=== PATIENT | female | born 1945 | race Caucasian/White ===

== ENCOUNTER 2020-02-08 08:39 | Outpatient (REF) | payer MEDICAID, SELFPAY ==
--- NOTE | 2020-02-08 13:58 | MHC.AU.P13 ---
Adult Audiological Evaluation Date of Visit: 02/08/20 Adult Care Provider Used: Declined by Patient Reason for Appointment: Audiologic re-evaluation due to question of change in hearing ability. Patient lost both [place] RITE aids received from this office in 2017 while in the [place] and was unable to find them. Need to obtain new in-the-ear hearing aids as patient had significant difficulty manipulating the RITE style. Does patient feel they have a hearing loss?: Yes If Yes, Which Ear?: Both Ears When Was Hearing Difficulty First Noticed?: At least 13 years ago. Assessed by Engineer Sergeant Dr. Derek Jensen in 2017 and medically cleared for binaural hearing aids. Has hearing been tested previously?: Yes Previous Hearing Test Results: [facility] 08/02/2016 Right ear: Borderline normal hearing at 250-1000 Hz, dropping to a moderate sensorineural hearing loss with 92% speech understanding at 65 dB HL Left ear: Moderate to profound sensorineural hearing loss with 72% speech understanding at 90 dB HL Ear History: Bothersome Tinnitus/Ringing/Noises in Ears: Both Ears Medical History: Medical History: Diabetes Stroke Medication List: Loratadine (as needed), Amitriptyline HCI, Atenolol, Allopurinol, Calcium, Albuterol (as needed), Atorvastatin, Ketotifen eye drops (as needed) Otoscopy: Right Ear: Unremarkable Left Ear: Unremarkable Tympanometry: Right Ear: Normal Middle Ear System (Type A) Left Ear: Normal Middle Ear System (Type A) Otoacoustic Emissions Right Ear Results: Not performed at today's visit. Left Ear Results: Not performed at today's visit. Hearing Evaluation: Transducer(s) Used: Insert Earphones Bone Conduction Method: Conventional Audiometry Stimuli Used: Pure Tones Right Ear: Description of Hearing: Borderline normal at 250-500 Hz, dropping to a severe sensorineural high frequency hearing loss Left Ear: Description of Hearing: Moderately-severe to profound mixed hearing loss. Speech Recognition Threshold (SRT): Method Used: Monitored Live Voice Stimuli Used: Spondee Words Right Ear: 20 dB HL Left Ear: 60 dB HL Word Discrimination: Method: Monitored Live Voice Word Lists Used: Lista Bisil?bica (Northern Irish) Right Ear: 88% at 60 dB HL Left Ear: 60% at 90 dB HL Most Comfortable Level (MCL): Right Ear: Left Ear: Comparison: Compared to most recent evaluation: There is no significant decrease in hearing levels compared to 2017 results; however, the left ear speech discrimination has decreased from 72% to 60% today. Recommendations: Recommendations: Audiological re-evaluation in one year. Medical clearance from a physician is required before fitting. Recommendations (Other): Obtaining prior authorization from insurance as the hearing aids need to be replaced prior to the 5 year limit. Patient is leaving for the [place] [facility] February to May 2020. Took impressions of both ears without complication and will order aids in Early May 2020. Patient's daughter will call to schedule a Hearing Aid Fitting appointment in late May 2020. Diagnosis: Primary Diagnosis: H90.3 Bilateral Sensorineural Hearing Loss Services Performed: Services Performed: Comprehensive Audiological Evaluation (CPT 18533) Tympanometry (CPT 70241) Signature: Provider: Brigid Alonzo, MASON-A
--- NOTE | 2020-02-09 11:26 | MHC.AU.P13 ---
Hearing Aid Evaluation- Binaural Date of Visit: 02/08/20 Roll Wrapper Used: Declined by Patient Description of Hearing: Right Ear: Borderline normal low frequency dropping to moderately-severe sensorineural hearing loss Left Ear: Moderately-severe to profound mixed hearing loss Hearing Instrument Selection: Right Ear: Staff Services Manager:Phonak Model: Virto M 50-312 Battery Size: 312 Color: Dockery Left Ear: Staff Services Manager:Phonak Model: [employer] M 50-312 Battery Size: 312 Color: Dockery Recommendations: Recommendations: Due to patient's significant hearing loss and difficulty manipulating the two pieces required to use [id number] hearing aids , advise binaural in-the-ear custom hearing aids as part of the remediation process for the hearing loss. Recommendations: Aids will be ordered in Early May 2020 and Hearing Aid Fitting will be scheduled by family [place] [facility] [place] Code(s): Primary Diagnosis: H90.3 Bilateral Sensorineural Hearing Loss Secondary Diagnosis: N/A Services Performed: Hearing Aid Evaluation and [place]: Signature: Provider: Brigid Alonzo, CCC-A
== END 2020-02-08 08:40 | disposition home or self-care (01) ==
LOC: HO.SH 08:39
PROVIDERS: Visit Provider Internal Medicine
DX: H90.3 Sensorineural hearing loss, bilateral (principal)
CPT/HCPCS: 92557; 92567

== ENCOUNTER 2020-09-13 14:24 | Outpatient (REF) | payer MEDICAID, SELFPAY ==
--- NOTE | ~2020-09-13 | MM_ITS ---
EXAMINATION: BONE DENSITOMETRY CLINICAL INDICATION: Screening for osteoporosis. COMPARISON: Previous BD dated 09/11/2018 and baseline BD dated 11/24/2015. TECHNIQUE: Using a Tasspass DXA System (software version: 13.1) manufactured by [employer], dual-energy x-ray absorptiometry was performed of the lumbar spine and left hip. The images are of good technical quality. Summary results are attached. FINDINGS: AP SPINE L1-L4: Current: BMD 0.949 g/cm2, Z-score -0.6, T-score -1.9, osteopenia, 9.5% increase from previous, 16.6% increase from baseline (<5% change is not significant). Prior: BMD 0.867 g/cm2. Baseline: BMD 0.814 g/cm2. LEFT FEMUR, NECK: Current: BMD 0.620 g/cm2, Z-score -1.3, T-score -3.0, osteoporosis. Prior: BMD 0.669 g/cm2. Baseline: BMD 0.642 g/cm2. LEFT FEMUR, TOTAL: Current: BMD 0.837 g/cm2, Z-score 0.1, T-score -1.4, osteopenia, 5.7% decrease from previous, 0.7% decrease from baseline (<5% change is not significant). Prior: BMD 0.888 g/cm2. Baseline: BMD 0.843 g/cm2. IDENTIFIED RISK FACTORS: Osteoporosis, history of fracture (adult). Early menopause, secondary osteoporosis, hysterectomy, bilateral oophorectomy. HISTORY OF FRACTURE: Ankle. MEDICATIONS: Calcium supplements or multivitamin, vitamin D. MM/XR DEXA axial skeleton IMPRESSION: 1. DIAGNOSIS: Osteoporosis based on the lowest T-score value of -3.0 in the femoral neck applying World Health Organization criteria. 2. 10-YEAR FRACTURE RISK PREDICTION, FRAX: Major osteoporotic fracture (clinical spine, forearm, hip or shoulder) 17.2%. Hip fracture 5.9%. 3. Treatment Recommendations: NOF guidelines recommend consideration for treatment in postmenopausal women and men age 50 and older presenting with the following: -A hip or vertebral (clinical or morphometric) fracture. -T-score less than or equal to -2.5 at the femoral neck or spine after appropriate evaluation to exclude secondary causes. -Low bone mass at the hip or spine and a 10-year fracture probability by FRAX of greater than or equal to 3% for hip fracture or greater than or equal to 20% for major osteoporotic fracture based on the [place] adapted WHO algorithm. 4. Other Recommendations: All treatment decisions require clinical judgment and consideration of individual patient factors, including patient preferences, comorbidities, previous drug use, risk factors not captured in the FRAX model (e.g. frailty, falls, vitamin D deficiency, increased bone turnover, interval significant decline in bone density) and possible under or overestimation of fracture risk by FRAX. Additional medical evaluation for secondary cause of low bone mineral density may be appropriate. FUTURE SCAN RECOMMENDATION: People with diagnosed cases of osteoporosis or at high risk for fracture should have regular bone mineral density tests. For patients eligible for Medicare, routine testing is allowed once every 2 years. The testing frequency can be increased to one year for patients who have rapidly progressing disease, those who are receiving or discontinuing medical therapy to restore bone mass, or have additional risk factors.
== END 2020-09-13 14:25 | disposition home or self-care (01) ==
LOC: HO.MAMMO 14:24
PROVIDERS: Visit Provider Internal Medicine
DX: M81.0 Age-related osteoporosis without current pathological fracture (principal)
CPT/HCPCS: 77080

== ENCOUNTER 2020-11-22 11:29 | Outpatient (REF) | payer MEDICAID, SELFPAY ==
--- NOTE | ~2020-11-22 | XR_ITS ---
EXAMINATION: XR HIP, LEFT CLINICAL INFORMATION: Pain COMPARISON: None TECHNIQUE: Two views of the left hip. FINDINGS: Bones and soft tissues are normal. No fracture or dislocation is seen. There are small osteophytes at the left hip joint. There is a small soft tissue calcification adjacent to the left greater trochanter. There is proliferative bone reaction at the left iliac crest. XR/XR hip LT min 2V IMPRESSION: Mild degenerative changes.
== END 2020-11-22 11:30 | disposition home or self-care (01) ==
LOC: HO.XRAY 11:29
PROVIDERS: PCP Internal Medicine; Visit Provider Internal Medicine
DX: M25.552 Pain in left hip (principal)
CPT/HCPCS: 73502

== ENCOUNTER 2021-12-25 13:08 | Outpatient (REF) | payer MEDICAID, SELFPAY ==
--- NOTE | ~2021-12-25 | MM_ITS ---
EXAMINATION: MM SCREENING DIGITAL BREAST TOMOSYNTHESIS, BILATERAL CLINICAL INFORMATION: Screening. Asymptomatic. COMPARISON: Mammography: 09/11/2018, 11/21/2015 (new baseline). TECHNIQUE: Digital breast tomosynthesis is performed in both the craniocaudal and mediolateral oblique views along with computer-aided detection (CAD). Synthesized 2D images are generated from the tomosynthesis. FINDINGS: There are scattered areas of fibroglandular density (ACR BI-RADS breast composition Category b). There is asymmetry of the breasts again seen, the right is larger. Parenchymal pattern is similar to prior studies. There is no developing density or interval mass or architectural abnormality. Again, there are scattered benign bilateral calcifications including early ductal secretory, round, vascular. The axilla and skin contours are unremarkable. No significant changes from prior studies. MM/MM tomosynthesis screening BI IMPRESSION: No mammographic evidence of malignancy. ASSESSMENT: BI-RADS 2: Benign RECOMMENDATION: Routine annual mammography screening. This patient's information was entered into a reminder system with a target due date for their next mammogram.
== END 2021-12-25 13:09 | disposition home or self-care (01) ==
LOC: HO.MAMMO 13:08
PROVIDERS: Visit Provider Internal Medicine
DX: Z12.31 Encounter for screening mammogram for malignant neoplasm of breast (principal)
CPT/HCPCS: 77063; 77067

== ENCOUNTER 2022-07-06 15:51 | Outpatient (REF) | payer MEDICAID, SELFPAY ==
--- NOTE | ~2022-07-06 | US_ITS ---
EXAMINATION: US EXTRACRANIAL CAROTID DUPLEX, BILATERAL CLINICAL INFORMATION: History of CVA. Hypertension. Hyperlipidemia. COMPARISON: None available. TECHNIQUE: Real-time ultrasound and Doppler techniques (integrating B-mode 2-D vascular images, Doppler spectral analysis and color-flow Doppler imaging) were utilized to interrogate the extracranial carotid arteries, the vertebral arteries and proximal subclavian arteries bilaterally. The degree of stenosis is determined by criteria similar to NASCET. FINDINGS: Right Side: 1. There is moderate atherosclerotic plaque seen in the bifurcation/proximal ICA region. 2. The common carotid artery PSV proximally is 99 cm/s and distally 81 cm/s. 3. The proximal internal carotid artery velocities are 136 cm/s systolic and 27 cm/s diastolic. 4. The proximal external carotid artery PSV is 83 cm/s. 5. The vertebral artery shows antegrade flow. 6. The subclavian artery waveforms are normal. Left Side: 1. There is mild atherosclerotic plaque seen in the bifurcation/proximal ICA region. 2. The common carotid artery PSV proximally is 100 cm/s and distally 74 cm/s. 3. The proximal internal carotid artery velocities are 82 cm/s systolic and 21 cm/s diastolic. 4. The proximal external carotid artery PSV is 95 cm/s. 5. The vertebral artery shows antegrade flow. 6. The subclavian artery waveforms are normal. US/US carotid duplex BI IMPRESSION: 1. RIGHT: Minimal, non-hemodynamically significant stenosis of the proximal right internal carotid artery corresponding to a 0-49% stenosis by velocity criteria. 2. LEFT: Minimal, non-hemodynamically significant stenosis of the proximal left internal carotid artery corresponding to a 0-49% stenosis by velocity criteria.
== END 2022-07-06 15:52 | disposition home or self-care (01) ==
LOC: HO.US 15:51
PROVIDERS: PCP Internal Medicine; Visit Provider Internal Medicine
DX: I63.9 Cerebral infarction, unspecified (principal)
CPT/HCPCS: 93880

== ENCOUNTER → 2022-08-14 11:04 | Outpatient (REF) | payer MEDICAID, SELFPAY ==
--- NOTE | 2022-08-14 11:06 | CA_ITS ---
Transthoracic Echocardiogram Patient (Last, First, Middle): Daily Aceves, Gender: Female Date of : 1945 Age: 77 Procedure Date: 08/14/2022 Procedure Type: Transthoracic Echocardiogram Location: OP Height: 142.24 cm Weight: 74.84 kg BSA: 1.64 m2 Heart Rate: bpm BP: 112 / 78 mmHg Lottery Sales Clerk: ANALISA Referring MD: Dieter Nicole MD Symptoms: I63.9 ISCHEMIC STROKE Study Quality: Adequate ECG Rhythm: Sinus Conclusions: - The left ventricular systolic function is normal. The calculated ejection fraction is 65% by biplane method. - Evidence suggests grade II (moderate) diastolic dysfunction. - There is mild calcification of the aortic valve. - There is moderate mitral annular calcification. There is mild mitral valve stenosis. Findings Left Ventricle Normal left ventricular cavity size. There is mildly increased left ventricular wall thickness. The left ventricular systolic function is normal. The calculated ejection fraction is 65% by biplane method. There is no evidence of regional wall motion abnormalities. Evidence suggests grade II (moderate) diastolic dysfunction. Right Ventricle Normal right ventricular cavity size and systolic function. Atria The left atrium is moderately dilated. The right atrium is normal in size. Aortic Valve There is a normal trileaflet aortic valve. There is mild calcification of the aortic valve. There is no aortic valve stenosis. There is no aortic valve regurgitation. Mitral Valve There is moderate mitral annular calcification. There is no mitral valve regurgitation. There is mild mitral valve stenosis. Pulmonic Valve The pulmonic valve is likely normal. Tricuspid Valve Normal tricuspid valve structure. There is mild tricuspid valve regurgitation. There is no evidence of pulmonary hypertension. Great Vessels The asc aorta is normal in size. Venous The inferior vena cava is normal in size and collapses greater than 50% with inspiration. Pericardium/Pleural There is no evidence of pericardial effusion. Prior Study Comparison No significant change compared to prior study dated: 09/03/2018. Measurements 2D Linear Measurements IVSd: 1.09 0.6-0.9/0.6-1.0 cm LVIDd: 3.67 3.9-5.3/4.2-5.9 cm LVIDd Index: 2.24 2.4-3.2/2.2-3.1 cm/m2 LVIDs: 1.98 2.0-3.6 cm LVPWd: 1.02 0.7-1.1 cm LA Diam: 3.10 2.7-3.8/3.0-4.0 cm LAIDs Index: 1.89 1.5-2.3 cm/m2 LV Mass: 149.42 67-162/88-224 g LV Mass Index: 91.11 43-95/49-115 g/m2 LVOT Diam: 2.00 3.0+(-)1.3 cm 2D Systolic Function EF 4C: 60.50 >55% EF 2C: 71.80 >55% EF BiP: 65.00 >55% Mitral Valve MV VTI: 0.50 MV Pk Raheem: 1.31 MV Mn Raheem: 0.76 MV Pk Grad: 7.00 MV Mn Grad: 3.00 MV Pk E: 1.05 MV PK A: 1.22 MV Decel Time: 299.00 E/A: 0.90 E'Lateral: 5.57 E'Medial: 4.53 E/E' Med: 23.20 E/E' Lat: 18.90 PHT: 88.00 MVA PHT: 2.50 MVA Continuity: 1.85 Decel Alexander: 3.49 Aortic Valve AoV Pk Raheem: 1.72 AoV Mn Raheem: 1.12 AoV VTI: 0.42 AoV Pk Grad: 12.00 Aov Mn Grad: 6.00 LUCÍA Cont.VTI: 2.22 LVOT LVOT Pk Raheem: 1.12 LVOT Mn Raheem: 0.74 LVOT VTI: 0.29 LVOT Pk Grad: 5.00 LVOT Mn Grad: 3.00 LVOT Diam: 2.00 LVOT Area: 3.14 Diastolic Function MV Pk E: 1.05 MV Pk A: 1.22 E/A: 0.90 E'Medial: 4.53 E/E' Med: 23.20 E' Laterial: 5.57 E/E' Lat: 18.90 Right Ventricle TAPSE (mm): 20.40 TVS' Raheem: 11.00 Tricuspid Valve TR Pk Raheem: 2.43 TR Pk Grad: 24.00 RA Press: 3.00 RVSP: 27.00 Great Vessels Aorta Sinus of Valsalva: 2.96 2.0-3.[address] Ridge: 2.19 1.7-3.4 cm Ao Asc: 3.20 2.1-3.4 cm Updated in Other Vendor System with Status of Final Cristhian Hernandez MD electronically signed on 08/14/2022 4:28:32 PM with status of Final
== END ==
LOC: HO.CARD 11:04
PROVIDERS: PCP Internal Medicine; Visit Provider Internal Medicine
DX: I63.9 Cerebral infarction, unspecified (principal)
CPT/HCPCS: 93306

== ENCOUNTER 2022-09-26 16:21 | Outpatient (REF) | payer MEDICAID, SELFPAY ==
[2022-09-26 18:49] LABS: Alanine Aminotransferase 29 U/L (0-31); Albumin Level 4.1 g/dL (3.5-5.0); Alkaline Phosphatase 67 U/L (39-117); Anion Gap 17 (12-20); Aspartate Amino Transferase 23 U/L (5-31); Bilirubin Total 0.5 mg/dL (0.0-1.0); Blood Urea Nitrogen 53 mg/dL (9-16); Calcium 10.2 mg/dL (8.4-10.2); Carbon Dioxide 28 mmol/L (22-29); Chloride 105 mmol/L (96-108); Cholesterol 183 mg/dL; Estimated Glomerular Filt Rate 17; Glucose Random 92 mg/dL (60-115); HDL Cholesterol 38 mg/dL; LDL Cholesterol Calculated 89 mg/dl; Potassium 4.6 mmol/L (3.3-5.1); Sodium 145 mmol/L (135-145); Triglycerides 281 mg/dL
== END 2022-09-26 16:22 | disposition home or self-care (01) ==
LOC: HO.CHCLDS 16:21
PROVIDERS: Visit Provider Internal Medicine
DX: E78.2 Mixed hyperlipidemia (principal); E11.22 Type 2 diabetes mellitus with diabetic chronic kidney disease; N18.32 Chronic kidney disease, stage 3b
CPT/HCPCS: 36415; 80053; 80061

== ENCOUNTER 2022-12-27 13:05 | Outpatient (REF) | payer MEDICAID, SELFPAY | END 2022-12-27 13:06 | disposition home or self-care (01) | LOC: HO.MAMMO 13:05 | PROVIDERS: PCP Internal Medicine; Visit Provider Internal Medicine | DX: Z12.31 Encounter for screening mammogram for malignant neoplasm of breast (principal) | CPT/HCPCS: 77063; 77067 ==

== ENCOUNTER → 2022-12-27 13:15 | Outpatient (BNV) | payer MEDICAID, SELFPAY | PROVIDERS: PCP Internal Medicine; Visit Provider Radiology Diagnostic Radiology | DX: Z12.31 Encounter for screening mammogram for malignant neoplasm of breast (principal) | CPT/HCPCS: 77063; 77067 ==

== ENCOUNTER 2023-08-21 09:20 | Outpatient (REF) | payer MEDICAID, SELFPAY ==
[2023-08-21 14:25] LABS: Estimated Average Glucose 154 mg/dL
[2023-08-21 14:36] LABS: Alanine Aminotransferase 14 U/L (0-31); Albumin Level 4.2 g/dL (3.5-5.0); Alkaline Phosphatase 58 U/L (39-117); Anion Gap 13 (12-20); Aspartate Amino Transferase 17 U/L (5-31); Bilirubin Total 0.5 mg/dL (0.0-1.0); Blood Urea Nitrogen 67 mg/dL (9-16); Calcium 11.1 mg/dL (8.4-10.2); Carbon Dioxide 27 mmol/L (22-29); Chloride 108 mmol/L (96-108); Cholesterol 184 mg/dL (<200); Estimated Glomerular Filt Rate 14; Glucose Random 129 mg/dL (60-115); HDL Cholesterol 37 mg/dL (>40); LDL Cholesterol Calculated 113 mg/dL (<100); Potassium 5.2 mmol/L (3.3-5.1); Sodium 143 mmol/L (135-145); Total Protein 7.9 g/dL (6.5-8.0); Triglycerides 174 mg/dL (<150)
[2023-08-21 14:51] LABS: Creatinine Urine 102.36 mg/dL; Microalbum/Creatinine Ratio Ur 15.6 ug/mg cr (<30)
== END 2023-08-21 09:21 | disposition home or self-care (01) ==
LOC: HO.CHCLDS 09:20
PROVIDERS: Visit Provider Internal Medicine
DX: E11.22 Type 2 diabetes mellitus with diabetic chronic kidney disease (principal); N18.32 Chronic kidney disease, stage 3b
CPT/HCPCS: 36415; 80053; 80061; 82043; 82570; 83036

== ENCOUNTER 2023-12-30 12:16 | Outpatient (REF) | payer MEDICAID, SELFPAY ==
--- NOTE | ~2023-12-30 | MM_ITS ---
EXAMINATION: MM SCREENING DIGITAL BREAST TOMOSYNTHESIS, BILATERAL CLINICAL INFORMATION: Screening. Asymptomatic. COMPARISON: Mammography: Comparison is made with available priors TECHNIQUE: Digital breast mammography with tomosynthesis is performed in both the craniocaudal and mediolateral oblique views along with computer-aided detection (CAD). FINDINGS: There are scattered areas of fibroglandular density (ACR BI-RADS breast composition Category b). There are no significant masses, abnormal calcifications, or other abnormalities. MM/MM tomosynthesis screening BI IMPRESSION: No mammographic evidence of malignancy. ASSESSMENT: BI-RADS BI-RADS 1 - Negative RECOMMENDATION: Routine annual mammography screening. 1 year F/U This examination should not preclude the clinical evaluation of a suspicious palpable abnormality. This patient's information was entered into a reminder system with a target due date for their next mammogram. Electronically signed by: Erna Major DO 01/08/2024 12:07 PM LISA
== END 2023-12-30 12:17 | disposition home or self-care (01) ==
LOC: HO.MAMMO 12:16
PROVIDERS: PCP Internal Medicine; Visit Provider Internal Medicine
DX: Z12.31 Encounter for screening mammogram for malignant neoplasm of breast (principal)
CPT/HCPCS: 77063; 77067

== ENCOUNTER → 2023-12-30 12:45 | Outpatient (BNV) | payer MEDICAID, SELFPAY | PROVIDERS: PCP Internal Medicine; Visit Provider Internal Medicine | DX: Z12.31 Encounter for screening mammogram for malignant neoplasm of breast (principal) | CPT/HCPCS: 77063; 77067 ==

== ENCOUNTER 2024-05-01 08:41 | Outpatient (REF) | payer MEDICAID, SELFPAY ==
--- OUTSIDE RECORDS SUMMARY | 2024-05-01 08:54 | XMS_ITS | Encounter Summary ---
Author Organization [employer] Address [address] [place] [address] Care Team Providers Care Crystal Machining Coordinator Name Role Phone Dieter George MD Primary Care Prov ider Reason for Visit * Reason Comments Med Refill Encounter Details Date Type Department Care Team (Late st Contact Info) Description 07/07/2022 Refill [facility] [address] [place], [place] [phone] Dieter George MD [address] [place] [address] Primary hypertension Social History Tobacco Use Types Packs/Day Years Used Date Smoking Tobacco: Never Assessed Depression Answer Date Recorded Patient Health Questionnaire-9 Score 1 02/20/2022 Depression Answer Date Recorded Patient Health Questionnaire-2 Score 1 02/20/2022 Comments Unknown Sex and Gender Information Value Date Recorded Sex Assigned at Female 12/18/2021 10:29 AM EDT Legal Sex Female 10:29 AM EDT Gender Identity Choose not to disclose 10:29 AM EDT Sexual Orientation Choose not to disclose 2021 10:29 AM EDT COVID-19 Exposure Response Date Recorded In the last 10 days, have yo u been in contact with someone who was confirmed or suspected to have Coronavirus/COVID-19? No / Unsure 06/26/2022 9:48 AM EDT documented as of this encounter Plan of Treatment Upcoming Encounters Date Type Department Care Team ([facility] Contact Info) Description 08/03/2024 11:15 AM EDT Telemedicine [facility] [address] [place] [address] Dieter George MD [address] [place] [address] documented as of this encounter Visit Diagnoses Diagnosis Primary hypertension Unspecified essential hypertension documented in this encounter Additional Health Concerns Assessment Noted Time PHQ-9 Depression Total Score: 1 02/20/19 23 10:21 AM EST documented as of this encounter Care Teams Crystal Machining Coordinator Relationship Specialty Start Date End Date Dieter George MD [address] [place] [address] PCP - General Internal Medicine 07/14/19 documented as of this encounter
--- OUTSIDE RECORDS SUMMARY | 2024-05-01 08:54 | XMS_ITS | Clinical Summary ---
Author Organization [facility] Address [address] [place] [phone] Phone Care Team Providers Care Supervisor Laboratory Name Role Phone SuggsDieter roman Primary Care Provider [phone] Allergies No known active allergies Medications Petrolatum 42 % ointment APPLY a cuerpo entero AFTER THE SHOWER EVERY DAY FOR PREVENIR LA ERUPCION CUTANEA 2 Active Multiple Vitamin (Multivitamin) tablet Take 1 tablet by mouth every morning 2 Active Melatonin 10 MG tablet dispersible 2 Active Tradjenta 5 MG tablet Take 1 tablet by mouth every morning 2 Active TRUEplus Lancets 33G misc TEST BLOOD SUGAR THREE TIMES DAILY 2 Active Eye Itch Relief 0.025 % ophthalmic solution PLACE ONE DROP IN THE AFFECTED EYE(S) TWICE DAILY NEEDED FOR ALLERGY 2 Active FREESTYLE LITE test strip TEST BLOOD SUGAR THREE TIMES DAILY 2 Active Clotrimazole Anti-Fungal 1 % cream APPLY TO AFFECTED AREA(S) AND SURROUNDING AREA(S) TWICE DAILY IN THE MORNING AND EVENING 2 Active Calcium + Vitamin D3 600-10 MG-MCG tablet TAKE ONE TABLET TWICE DAILY IN THE MORNING AND AT BEDTIME 2 Active Blood Pressure Monitoring (Omron 3 Series BP Monitor) device Check blood pressure on arm as directed 2 Active atorvastatin (LIPITOR) 80 MG tablet Take 80 mg by mouth every morning 2 Active aspirin 81 MG chewable tablet Chew 1 tablet 1 (one) time each day Active atenolol-chlorth alidone (TENORETIC) 50-25 MG per tablet Take 1 tablet by mouth every morning 2 Active amitriptyline (ELAVIL) 25 MG tablet Take 25 mg by mouth at night if needed 2 Active allopurinol (ZYLOPRIM) 100 MG tablet TAKE ONE-HALF TABLET EVERY MORNING 2 Active alendronate (FOSAMAX) 70 MG tablet Take 1 tablet by mouth 1 (one) time per week Active losartan (Cozaar) 25 MG tablet Take 2 tablets (50 mg total) by mouth 1 (one) time each day 60 tablet 11 2 Active Additional Information Patient taking differently: 100 mgOral Daily, Reported on 04/03/2024 Farxiga 10 MG tablet TAKE ONE TABLET EVERY MORNING 30 tablet 11 4 Active amLODIPine (NORVASC) 2.5 MG tablet Take 1 tablet (2.5 mg total) by mouth 1 (one) time each day 90 tablet 3 5 04/03/19 26 Active Active Problems Problem Noted Date Diagnosed Date Chronic kidney disease, stage 4 (severe) 024 Osteoporosis 01/23/2023 01/23/2023 Obese class II 01/23/2023 01/23/2023 Loss of all teeth 09/17/2022 Stage 5 chronic kidney disease 07/11/2022 Ischemic stroke 06/26/2022 Overview (07/05/2022): Last Assessment & Plan: Patient suffered a ischemic stroke on 05/17/22 at [facility], patient was hospitalized for 5 days. On examination she has more memory loss, preserved upper/lower extremity strength. She is on atorvastatin 80mg, will leave on aspirin 81mg, DM well controlled a1c 6.7%.. New labs will be ordered will discontinue plavix and fenofibrate, echo/carotid u/s ordered and will refer to neurology Type 2 diabetes mellitus 03/20/2022 Overview (07/05/2022): Last Assessment & Plan: Controlled, a1c today was 6.7%, reinforced importance of diet Tod to reschedule eye exam should be done yearly Mixed hyperlipidemia 03/20/2022 Overview (07/05/2022): Last Assessment & Plan: New labs will be ordered for guidance of therapy Other skin change 02/20/2022 Dry eyes 02/20/2022 Chronic kidney disease, stage 4 (severe) 022 Type 2 diabetes mellitus wit h diabetic chronic kidney disease 12/13/2021 Renal osteodystrophy 12/13/2021 Renal failure syndrome 10/18/2021 Essential hypertension 10/18/2021 Encounters Date Type Department Care Team Description 04/03/2024 11:15 AM EST Office Visit [facility] [address] [phone] Twin Byrnes MD Stage 5 chronic kidney disease (HCC) (Primary Dx); Type 2 diabetes mellitus with diabetic chronic kidney disease (HCC); Renal osteodystrophy 04/02/2024 Orders Only [facility] [address] [phone] Twin Byrnes MD Stage 5 chronic kidney disease (HCC); Type 2 diabetes mellitus with diabetic chronic kidney disease (HCC); Renal osteodystrophy; Essential hypertension from Last 3 Months Immunizations Name Administration Dates Next Due Influenza Split High Dose Preservative Free IM 1 Influenza, Quadrivalent, Preservative Free 11/19,05/10/2016 Influenza, Quadrivalent, With Preservative 12/04,05/10/2015 Influenza, Unspecified 01/29/2023 Pneumococcal Conjugate Pcv 20 01/29/2023 Pneumococcal Polysaccharide 05/10/2015 Tdap 05/10/2015 Social History Tobacco Use Types Packs/Day Years Used Date Smoking Tobacco: Never Smokeless Tobacco: Never Tobacco Cessation:Counseling Given: Not Answered Alcohol Use Standard Drinks/Week Comments Never 0 (1 standard drink = 0.6 oz pur e alcohol) Comments Unknown Sex and Gender Information Value Date Recorded Sex Assigned at Not on file Legal Sex Female 4:46 PM EST Gender Identity Not on file Sexual Orientation Not on file Last Filed Vital Signs Vital Sign Reading Time Taken Comments Blood Pressure 150/115 04/03/2024 10:36 AM EST Pulse 65 04/03/2024 10:36 AM EST Temperature - - Respiratory Rate - - Oxygen Saturation 97% 01/31/2024 10:52 AM EST Inhaled Oxygen Concentration - - Weight 80.6 kg (177 lb 9.6 oz) 04/03/2024 10:36 AM EST Height - - Body Mass Index - - Plan of Treatment Upcoming Encounters Date Type Department Care Team (Late st Contact Info) Description 07/01/2024 10:00 AM EDT Office Visit [facility] [address] [phone] Twin Byrnes MD [address] [address] Health Maintenance Due Date Last Done Comments Diabetes: Ophthalmology Exam 10/18/2021 Diabetes: Pedal Pulse Checked 10/18/2021 Diabetes: Sensory Foot Exam 10/18/2021 Diabetes: Visual Foot Exam 10/18/2021 Diabetes: Hemoglobin A1C 03/10/2024 024, 08/21/2023, 06/26/2022 Pneumococcal Vaccine: 65+ Years Completed 01/29/2023, 05/10/2015 Influenza Vaccine Completed 11/19/2023, , 12/04/2018, Additional history exists Hepatitis B Vaccine Aged Out No longe r eligible based on patient's age to complete this topic Procedures Procedure Name Priority Date/Time Associated Diagnosis Comments PTH, INTACT Routine 03/31/2024 10:02 AM EST MAGNESIUM Routine 03/31/2024 10:02 AM EST VITAMIN D 25 HYDROXY Routine 03/31/2024 10:02 AM EST URINE ALBUMIN / CREATININE RATIO Routine 03/31/2024 10:02 AM EST PROTEIN / CREATININE RATIO, URINE Routine 03/31/2024 10:02 AM EST CBC Routine 03/31/2024 10:02 AM EST RENAL FUNCTION PANEL Routine 03/31/2024 10:02 AM EST URINALYSIS WITH MICROSCOPIC Routine 03/31/2024 10:02 AM EST MICROSCOPIC EXAMINATION - DO NOT USE Routine 03/31/2024 10:02 AM EST from Last 3 Months Results * (ABNORMAL) Microscopic Examination (03/31/2024 10:02 AM EST) WBC, Urine >30(A) 0 - 5 /hpf [facility] RBC, Urine None seen 0 - 2 /hpf [facility] Squamous Epithelial, Urine 0-10 0 - 10 /hpf [facility] Casts None seen None seen /lpf [facility] Bacteria, Urine None seen None seen/Few [facility] 03/31/2024 10:0 2 AM EST 03/31/2024 us Twin Byrnes MD LAB MICROBIOLOGY - GENERAL OR DERABLES Final Result [facility] [address] [place] [address] * (ABNORMAL) Protein, Total, Random Urine w/Creatinine (Protein/Creat Ratio) (03/31/2024 10:02 AM EST) Creatinine, Ur 91.4 Not Estab. mg/dL [facility] Protein, Ur 30.5 Not Estab. mg/dL [facility] Urine Protein/Creati nine Ratio 334(H) 0 - 200 mg/g creat [facility] 03/31/2024 10:0 2 AM EST 03/31/2024 us Twin Byrnes MD LAB URINE ORDERABLES Final Re sult Performing Organization Address [facility] Co de Phone Number ARAMIS [place] Mamie [address] [place] [address] * (ABNORMAL) Urine Albumin / Creatinine Ratio (03/31/2024 10:02 AM EST) Albumin, Urine 33.3 Not Estab. ug/mL [facility] Albumin/Creatin ine Ratio 36(H) 0 - 29 mg/g creat [facility] Comment: ? Normal: ?0 - ??29 ? Moderately increased: 30 - 300 ? Severely increased: ? >300 03/31/2024 10:0 2 AM EST 03/31/2024 us Twin Byrnes MD LAB URINE ORDERABLES Final Re sult Performing Organization Address [facility] de Phone Number EMILY [facility] Mam[address] [place] [address] * Vitamin D 25 Hydroxy (03/31/2024 10:02 AM EST) Vitamin D, 25-OH, Total 36.2 30.0 - 100.0 ng/mL [facility] Comment: Vitamin D deficiency has been defined by the [place] [employer] and an Endocrine Society practice guideline as a level of serum 25-OH vitamin D less than 20 ng/mL (1,2). The Endocrine Society went on to further define vitamin D insufficiency as a level between 21 and 29 ng/mL (2). 1. IOM ([place] [employer]). 2010. Dietary reference ?? intakes for calcium and D. [place]: The ?? National Academies Press. 2. Trevon MF, Mar YE, Nino SUERO, et al. ?? Evaluation, treatment, and prevention of vitamin D ?? deficiency: an Endocrine Society clinical practice ?? guideline. JCEM. 2010; 96(7):1911-30. 03/31/2024 10:0 2 AM EST 03/31/2024 us Twin Byrnes MD LAB BLOOD ORDERABLES Final Re sult [facility] [address] [place] [address] * (ABNORMAL) Urinalysis with microscopic (03/31/2024 10:02 AM EST) Specific [place], Urine 1.017 1.005 - 1.030 [facility] pH Urine 6.5 5.0 - 7.5 [facility] Color, Urine Yellow Yellow [facility] Appearance Urine Clear Clear [facility] WBC Esterase Urine 2+(A) Negative [facility] Protein, Ur 1+(A) Negative/Tra ce [facility] Glucose, Ur 2+(A) Negative [facility] [phone] Ketones, Urine Negative Negative [facility] [phone] Blood Urine Negative Negative [facility] Bilirubin Urine Negative Negative [facility] Urobilinogen Urine 0.2 0.2 - 1.0 mg/dL [facility] Nitrite, Urine Negative Negative [facility] Microscopic Examination See below: [facility] Comment:Microscopic was luke cated and was performed. 03/31/2024 10:0 2 AM EST 03/31/2024 Twin Byrnes MD LAB URINE ORDERABLES Final Re sult Performing Organization Address City/[facility]/ZIP Co de Phone Number [facility] [address] [place] [address] * CBC (03/31/2024 10:02 AM EST) WBC 10.0 3.4 - 10.8 x10E3/uL [facility] RBC 4.08 3.77 - 5.28 x10E6/uL [facility] Hemoglobin 12.2 11.1 - 15.9 g/dL [facility] Hematocrit 37.8 34.0 - 46.6 % [facility] MCV 93 79 - 97 fL [facility] MCH 29.9 26.6 - 33.0 pg [facility] MCHC 32.3 31.5 - 35.7 g/dL [facility] RDW 12.2 11.7 - 15.4 % [facility] Platelets 270 150 - 450 x10E3/uL [facility] 03/31/2024 10:0 2 AM EST 03/31/2024 Twin Byrnes MD LAB BLOOD ORDERABLES Final Re sult Performing Organization Address City/[facility]/ZIP Co de Phone Number [facility] [address] [place] [address] * PTH, Intact (03/31/2024 10:02 AM EST) PTH 44 15 - 65 pg/mL [facility] 03/31/2024 10:0 2 AM EST 03/31/2024 Twin Byrnes MD LAB BLOOD ORDERABLES Final Re sult Performing Organization Address City/[facility]/ZIP Co de Phone Number [facility] [address] [place] [address] * Magnesium (03/31/2024 10:02 AM EST) [facility] Magnesium 2.0 1.6 - 2.3 mg/dL [facility] 03/31/2024 10:0 2 AM EST 03/31/2024 Twin Byrnes MD LAB BLOOD ORDERABLES Final Re sult Performing Organization Address [facility] de Phone Number [facility] [address] [place] [address] * (ABNORMAL) Renal Function Panel (03/31/2024 10:02 AM EST) [facility] Glucose 128(H) 70 - 99 mg/dL [facility] BUN 65(H) 8 - 27 mg/dL [facility] Creatinine 3.03(H) 0.57 - 1.00 mg/dL [facility] eGFR CKD-EPI CR 2020 15(L) >59 mL/min/1.7 3 [facility] BUN/Creatinine Ratio 21 12 - 28 [facility] Sodium 140 134 - 144 mmol/L [facility] Potassium 5.4(H) 3.5 - 5.2 mmol/L [facility] Chloride 102 96 - 106 mmol/L [facility] Bicarbonate (CO2) 24 20 - 29 mmol/L [facility] Calcium 10.3 8.7 - 10.3 mg/dL [facility] Albumin 4.4 3.8 - 4.8 g/dL [facility] Phosphorus 3.8 3.0 - 4.3 mg/dL [facility] 03/31/2024 10:0 2 AM EST 03/31/2024 us Twin Byrnes MD LAB BLOOD ORDERABLES Final Re sult [facility] Organization Address City/State/ZIP Co de Phone Number [facility] [address] [place] [address] from Last 3 Months [place] Care Teams Supervisor Laboratory Relationship Specialty Start Date End Date Dieter Suggs [address] [place] [address] [phone] PCP - General Internal Medicine 07/27/21
--- OUTSIDE RECORDS SUMMARY | 2024-05-01 08:55 | XMS_ITS | Encounter Summary ---
Author Organization [employer] Address [address] [place] [address] Care Team Providers Care Emergency Department Director Name Role Phone Dieter George MD Primary Care Prov ider Encounter Details Date Type Department Care Team (Latest Contact Info) Description 04/27/2024 Travel Social History Tobacco Use Types Packs/Day Years Used Date Smoking Tobacco: Never Passive Smoke Exposure: Never Smokeless Tobacco: Never Alcohol Use Standard Drinks/Week Comments Defer 0 (1 standard drink = 0.6 oz pur e alcohol) Depression Answer Date Recorded Patient Health Questionnaire-9 Score 1 02/20/2022 Housing Stability Answer Date Recorded What is your housing situation today? Not on roman e 12/03/[address] you li ve. Do you have problems with any of the following? None of the above 12/03/2022 Food Insecurity Answer Date Recorded Within the past 12 months, y ou worried that your food would run out before you got money to buy more: Never True 12/03/2022 Within the past 12 months,th e food you bought just didn't last and you didn't have enough money to get more: Never True Transportation Answer Date Recorded In the past 12 months, has l ack of transportation kept you from medical appts, meetings, work or from getting things needed for daily living? No 12/03/2022 Utilities Answer Date Recorded In the past 12 months, has t he electric, gas, oil or water company threatened to shut off services in your home? No 12/03/2022 Depression Answer Date Recorded Patient Health Questionnaire-2 Score 1 02/20/2022 Comments Unknown Sex and Gender Information Value Date Recorded Sex Assigned at Female 12/18/2021 10:29 AM EDT Legal Sex Female 10:29 AM EDT Gender Identity Choose not to disclose 10:29 AM EDT Sexual Orientation Choose not to disclose 2021 10:29 AM EDT documented as of this encounter Plan of Treatment Upcoming Encounters Date Type Department Care Team ([facility] st Contact Info) Description 08/03/2024 11:15 AM EDT Telemedicine [facility] [address] [place] [address] Dieter George MD [address] [place] [address] documented as of this encounter Visit Diagnoses Not on filedocumented in this encounter Additional Health Concerns Assessment Noted Time PHQ-9 Depression Total Score: 1 02/20/19 23 10:21 AM EST documented as of this encounter Care Teams Emergency Department Director Relationship Specialty Start Date End Date Dieter George MD [address] [place] [address] PCP - General Internal Medicine 07/14/19 documented as of this encounter
--- OUTSIDE RECORDS SUMMARY | 2024-05-01 08:55 | XMS_ITS | Clinical Summary ---
Author Organization [address] [place] [address] Address [address] [place] [address] Phone Care Team Providers Care Lap Grinder Name Role Phone Dieter George Primary Care Provide r Allergies No known active allergies Medications blood-glucose meter misc 1 Lancet by extracorporeal route 3 (three) times a day. 3 Active blood sugar diagnostic (FreeStyle Lite Strips) test strip USE TO TEST BLOOD SUGAR TWICE DAILY 4 Active glucose blood test strip 1 Lancet by extracorporeal route 3 (three) times a day. 2 Active atorvastatin (LIPITOR) 80 mg tablet Take 1 tablet (80 mg total) by mouth daily. 2 Active polyvinyl alcohol (ARTIFICIAL TEARS) 1.4 % ophthalmic solution PLACE ONE DROP IN EACH EYE THREE TIMES DAILY IN THE MORNING, AT NOON, AND AT BEDTIME FOR DRY 4 Active white petrolatum 42 % ointment APPLY a cuerpo entero AFTER THE SHOWER EVERY DAY FOR PREVENIR LA ERUPCION CUTANEA 2 Active peg 400-hypromello se-glycerin 1-0.2-0.2 % drops PLACE ONE DROP IN EACH EYE THREE TIMES DAILY NEEDED FOR ojos seca 4 Active multivitamin tablet Take 1 tablet by mouth 1 (one) time each day in the morning. 4 Active melatonin 5 mg tablet TAKE TWO TABLETS EVERY DAY AT BEDTIME 4 Active losartan (COZAAR) 100 mg tablet Take 1 tablet (100 mg total) by mouth 1 (one) time each day in the morning. Active Tradjenta 5 mg tablet Take 1 tablet (5 mg total) by mouth 1 (one) time each day in the morning. Active Easy Touch Twist Lancets 33 gauge misc 1 Lancet by extracorporeal route 3 (three) times a day. 4 Active ketotifen fumarate (ZADITOR) 0.035 % ophthalmic solution INSTILL ONE DROP IN THE AFFECTED EYE(S) TWICE DAILY NEEDED FOR ALLERGY Active icosapent ethyL (VASCEPA) 1 gram capsule TAKE TWO CAPSULES TWICE DAILY IN THE MORNING AND EVENING WITH MEALS Active Farxiga 10 mg tablet Take 1 tablet (10 mg total) by mouth 1 (one) time each day in the morning. Active clotrimazole (LOTRIMIN) 1 % cream APPLY TO AFFECTED AREA(S) AND SURROUNDING AREA(S) TWICE DAILY IN THE MORNING AND EVENING Active calcium carbonate-mitul min D 600 mg-10 mcg (400 unit) per tablet TAKE 1 TABLET TWICE DAILY IN THE MORNING AND AT BEDTIME 4 Active calcium carbonate-vit D3-min 600 mg-10 mcg (400 unit) tablet TAKE ONE TABLET TWICE DAILY IN THE MORNING AND AT BEDTIME 2 Active atenoloL-chlor thalidone (TENORETIC) 50-25 mg per tablet Take 1 tablet by mouth 1 (one) time each day in the morning. Active aspirin 81 mg chewable tablet Chew 1 tablet (81 mg total) 1 (one) time each day. 4 Active amitriptyline (ELAVIL) 25 mg tablet TAKE ONE TABLET EVERY NIGHT AT BEDTIME NEEDED Active allopurinoL (ZYLOPRIM) 100 mg tablet TAKE ONE-HALF TABLET EVERY MORNING Active alendronate (FOSAMAX) 70 mg tablet Take 1 tablet (70 mg total) by mouth. Active Alcohol Prep Pads pads, medicated USE THREE DAILY USE THREE DAILY Active acetaminophen (TYLENOL 8 HOUR) 650 mg 8 hr tablet TAKE TWO TABLETS EVERY 8 HOURS NEEDED, DO NOT BREAK, CRUSH, DISSOLVE OR CHEW 4 Active Active Problems Problem Noted Date Diagnosed Date Class 2 obesity 01/23/2023 Osteoporosis 01/23/2023 Loss of all teeth 09/17/2022 Ischemic stroke 06/26/2022 Overview (03/04/2024): Last Assessment & Plan: Patient suffered a ischemic stroke on 05/17/22 at [facility], patient was hospitalized for 5 days. On examination she has more memory loss, preserved upper/lower extremity strength. She is on atorvastatin 80mg, will leave on aspirin 81mg, DM well controlled a1c 6.7%.. New labs will be ordered will discontinue plavix and fenofibrate, echo/carotid u/s ordered and will refer to neurology Type 2 diabetes mellitus 03/20/2022 Overview (03/04/2024): Last Assessment & Plan: Controlled, a1c today was 6.7%, reinforced importance of diet Tod to reschedule eye exam should be done yearly Mixed hyperlipidemia 03/20/2022 Overview (03/04/2024): Last Assessment & Plan: New labs will be ordered for guidance of therapy Dryness of periwound skin 02/20/2022 Eye dryness 02/20/2022 Other skin changes 02/20/2022 Type 2 diabetes mellitus wit h diabetic chronic kidney disease 12/13/2021 Renal osteodystrophy 12/13/2021 Essential hypertension 10/18/2021 Renal failure syndrome 10/18/2021 Hearing loss 08/28/2016 Encounters Date Type Department Care Team Description 03/04/2024 10:45 AM EST Office Visit Orthopedic Surgery - [address] [address] Chuy Fernández, DPM Acquired hallux valgus of left foot (Primary Dx); Acquired hallux valgus of right foot; Acquired hammer toe of right foot; Hammer toe of left foot; Pain in toe of right foot; Pain in toe of left foot; Dermatophytosis of nail; Difficulty walking; Type II diabetes mellitus with peripheral circulatory disorder (CMS/HCC); Diabetic mononeuropathy simplex (CMS/HCC) from Last 3 Months Immunizations Name Administration Dates Next Due Influenza Quadravalent, 0.5m l (Fluzone High-dose) 65yo and older 01/29/2023,02/15/2020 Influenza Quadrivalent, 0.5m l, preservative free (Fluarix; FluLaval; Fluzone) ages 6mo and older (Afluria) 3yo and older 11/19/2016,05/10/2016 Influenza Quadrivalent, with preservative (Fluzone; Afluria) 6mo and older 12/04/2018,05/10/2015 Influenza trivalent, 0.5mL ( Fluzone High-dose) 65yo and older 11/19/2023 Pneumococcal conjugate 20 va lent (Prevnar 20, PCV 20) 2mo and older 01/29/2023 Pneumococcal polysaccharide 23 valent (Pneumovax 23) 2yo and older 05/10/2015 Tdap Tetanus diptheria acell ular pertussis (Boostrix; Adacel) 7yo and older 05/10/2015 Social History Tobacco Use Types Packs/Day Years Used Date Smoking Tobacco: Never Assessed Comments Unknown Sex and Gender Information Value Date Recorded Sex Assigned at Not on file Legal Sex Female 11:12 AM EDT Gender Identity Not on file Sexual Orientation Not on file Last Filed Vital Signs Vital Sign Reading Time Taken Comments Blood Pressure - - Pulse - - Temperature - - Respiratory Rate - - Oxygen Saturation - - Inhaled Oxygen Concentration - - Weight 74.8 kg (165 lb) 03/04/2024 11:04 AM EST Height 142.2 cm (4' 8 ) 03/04/2024 11:04 AM EST Body Mass Index 36.99 03/04/2024 11:04 AM EST Plan of Treatment Upcoming Encounters Date Type Department Care Team (Late st Contact Info) Description 05/19/2024 10:30 AM EDT Office Visit Orthopedic Surgery - [place] [address] [phone] Chuy Fernández, DPM [address] [address] Health Maintenance Due Date Last Done Comments Diabetes: Annual GFR (Glomerular Filtration Rate) 1945 Diabetes: Annual Foot Exam 1955 Diabetes: Annual Retina Eye Exam 1955 Zoster Vaccines (1 of 2) 1995 RSV Immunization Patients 60+ Years Old (1 - 1-dose 75+ series) 01/19/2020 Depression Screening 12/14/2023 02/20/2022 Falls Risk Assessment 12/14/2023 Osteoporosis Screening (Bone Density Screening) 12/14/2023 Social Influencers of Health Screening 12/14/2023 Hypertension/CHF/CAD Annual BMP Blood Test 02/28/2024 Diabetes: Blood Sugar Control Test (HGBA1C) 06/08/2024 12/09/2023 Diabetes: Annual Urine Albumin-Creatinine Ratio (uACR) 01/26/2025 01/27/2024, 12/04/2023 DTaP,Tdap,and Td Vaccines (2 - Td or Tdap) 05/09/2025 05/10/2015 Cholesterol Screening (Lipid Panel) 08/20/2028 08/21/2023 Hepatitis C Screening Completed 06/26/2022 Pneumococcal Vaccine: 50+ Years Completed 01/29/2023, 05/10/2015 COVID-19 Vaccine Completed 11/19/2023, , 02/06/2021, Additional history exists Influenza Vaccine Completed 11/19/2023, , 02/15/2020, Additional history exists HIB Vaccines Aged Out No longer eligi ble based on patient's age to complete this topic HPV Vaccines Aged Out No longer eligi ble based on patient's age to complete this topic Hepatitis A Vaccines Aged Out No long er eligible based on patient's age to complete this topic Hepatitis B Vaccines Aged Out No long er eligible based on patient's age to complete this topic IPV Vaccines Aged Out No longer eligi ble based on patient's age to complete this topic MMR Vaccines Aged Out No longer eligi ble based on patient's age to complete this topic Meningococcal ACWY Vaccine Aged Out N o longer eligible based on patient's age to complete this topic Meningococcal B Vacine Aged Out No lo nger eligible based on patient's age to complete this topic RSV Immunization Patients Under 20 months Aged Out No longer eligible based on patient's age to complete this topic Varicella Vaccines Aged Out No longer eligible based on patient's age to complete this topic Insurance MEDICAID - [place] Care Teams Lap Grinder Relationship Specialty Start Date End Date Dieter George [address] [place] [phone] PCP - General Internal Medicine 12/13/23
--- OUTSIDE RECORDS SUMMARY | 2024-05-01 08:55 | XMS_ITS | Encounter Summary ---
Author Organization [facility] Address [address] [place] [phone] Phone Care Team Providers Care Inspector Barrel Name Role Phone Dieter Suggs Primary Care Provider [phone] Reason for Visit * Reason Comments Chronic Kidney Disease Encounter Details Date Type Department Care Team (Latest Contact Info) Description 04/03/2024 11:15 AM EST Office Visit [facility] [address] [phone] Twin Byrnes MD [address] [address] Stage 5 chronic kidney disease (HCC) (Primary Dx); Type 2 diabetes mellitus with diabetic chronic kidney disease (HCC); Renal osteodystrophy Social History Tobacco Use Types Packs/Day Years Used Date Smoking Tobacco: Never Smokeless Tobacco: Never Alcohol Use Standard Drinks/Week Comments Never 0 (1 standard drink = 0.6 oz pur e alcohol) Comments Unknown Sex and Gender Information Value Date Recorded Sex Assigned at Not on file Legal Sex Female 4:46 PM EST Gender Identity Not on file Sexual Orientation Not on file documented as of this encounter Last Filed Vital Signs Vital Sign Reading Time Taken Comments Blood Pressure 150/115 04/03/2024 10:36 AM EST Pulse 65 04/03/2024 10:36 AM EST Temperature - - Respiratory Rate - - Oxygen Saturation - - Inhaled Oxygen Concentration - - Weight 80.6 kg (177 lb 9.6 oz) 04/03/2024 10:36 AM EST Height - - Body Mass Index - - documented in this encounter Patient Instructions * Patient Instructions* Twin Byrnes MD - 04/03/2024 11:15 AM EST No NSAIDS - Do not take non-steroidal anti-inflammatory medications (NSAIDS) such as Ibuprofen (Advil, Motrin, etc), Naproxen (Aleve, etc), Celecoxib (Celebrex) or Ketoprofen. These common arthritis medications can cause permanent kidney damage or worsen your kidney damage. For mild occasional pain, Acetaminophen (Tylenol, etc) is safe for your kidneys. Blood pressure monitoring education: Monitor home blood pressure values after sitting for 5 minutes with back and arm support. Keep a log. Bring your log and blood pressure cuff to your next visit. 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 osteodystrophy Expected: 04/03/2024, Expires: 05/01/2025 Renal Function Panel Lab Routine Stage 5 chronic kidney disease (HCC) 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 osteodystrophy Expected: 04/03/2024, Expires: 05/01/2025 Urinalysis with microscopic Lab Routine Stage 5 chronic kidney disease (HCC) 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 osteodystrophy Expected: 04/03/2024, Expires: 05/01/2025 Urine Albumin / Creatinine Ratio Lab Routine Stage 5 chronic kidney disease (HCC) 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 osteodystrophy Expected: 04/03/2024, Expires: 05/01/2025 Protein, Total, Random Urine w/Creatinine (Protein/Creat Ratio) Lab Routine Stage 5 chronic kidney disease (HCC) 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 osteodystrophy Expected: 04/03/2024, Expires: 05/01/2025 Vitamin D 25 Hydroxy Lab Routine Stage 5 chronic kidney disease (HCC) 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 osteodystrophy Expected: 04/03/2024, Expires: 05/01/2025 CBC Lab Routine Stage 5 chronic kidney disease (HCC) 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 osteodystrophy Expected: 04/03/2024, Expires: 05/01/2025 Phosphorus Lab Routine Stage 5 chronic kidney disease (HCC) 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 osteodystrophy Expected: 04/03/2024, Expires: 05/01/2025 Magnesium Lab Routine Stage 5 chronic kidney disease (HCC) 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 osteodystrophy Expected: 04/03/2024, Expires: 05/01/2025 Albumin Lab Routine Stage 5 chronic kidney disease (HCC) 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 osteodystrophy Expected: 04/03/2024, Expires: 05/01/2025 Calcium Lab Routine Stage 5 chronic kidney disease (HCC) 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 osteodystrophy Expected: 04/03/2024, Expires: 05/01/2025 PTH, Intact Lab Routine Stage 5 chronic kidney disease (HCC) 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 osteodystrophy Expected: 04/03/2024, Expires: 05/01/2025 Renal Function Panel Lab Routine Stage 5 chronic kidney disease (HCC) 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 osteodystrophy Expected: 04/03/2024, Expires: 05/01/2025 Urinalysis with microscopic Lab Routine Stage 5 chronic kidney disease (HCC) 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 osteodystrophy Expected: 04/03/2024, Expires: 05/01/2025 Urine Albumin / Creatinine Ratio Lab Routine Stage 5 chronic kidney disease (HCC) 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 osteodystrophy Expected: 04/03/2024, Expires: 05/01/2025 Protein, Total, Random Urine w/Creatinine (Protein/Creat Ratio) Lab Routine Stage 5 chronic kidney disease (HCC) 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 osteodystrophy Expected: 04/03/2024, Expires: 05/01/2025 Vitamin D 25 Hydroxy Lab Routine Stage 5 chronic kidney disease (HCC) 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 osteodystrophy Expected: 04/03/2024, Expires: 05/01/2025 CBC Lab Routine Stage 5 chronic kidney disease (HCC) 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 osteodystrophy Expected: 04/03/2024, Expires: 05/01/2025 Phosphorus Lab Routine Stage 5 chronic kidney disease (HCC) 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 osteodystrophy Expected: 04/03/2024, Expires: 05/01/2025 Magnesium Lab Routine Stage 5 chronic kidney disease (HCC) 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 osteodystrophy Expected: 04/03/2024, Expires: 05/01/2025 Albumin Lab Routine Stage 5 chronic kidney disease (HCC) 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 osteodystrophy Expected: 04/03/2024, Expires: 05/01/2025 Calcium Lab Routine Stage 5 chronic kidney disease (HCC) 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 osteodystrophy Expected: 04/03/2024, Expires: 05/01/2025 documented as of this encounter Visit Diagnoses Diagnosis Stage 5 chronic kidney disease (HCC)- Primary 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
--- OUTSIDE RECORDS SUMMARY | 2024-05-01 08:55 | XMS_ITS | Encounter Summary ---
Author Organization [employer] Address [address] [facility] 7[address] [place] [address] Care Team Providers Care Energy Projects Lead Name Role Phone Dieter George MD Primary Care Prov ider Encounter Details Date Type Department Care Team (Late st Contact Info) Description 04/27/2024 2:15 PM EDT Telemedicine [facility] [address], [place] [phone] Dieter George MD [address] [place] [address] Type 2 diabetes mellitus with stage 3b chronic kidney disease, without long-term current use of insulin ([facility]/HCC) (Primary Dx); Primary hypertension Social History Tobacco Use Types [...] AM EDT documented as of this encounter Last Filed Vital Signs Vital Sign Reading Time Taken Comments Blood Pressure 146/84 04/27/2024 4:30 PM EDT Pulse - - Temperature - - Respiratory Rate - - Oxygen Saturation - - Inhaled Oxygen Concentration - - Weight - - Height - - Body Mass Index - - documented in this encounter Progress Notes * Dieter Nicole MD - 04/27/2024 2:15 PM EDT Subjective Patient ID: Daily Babcock is a 79 y.o. adult who presents for No chief complaint on file.. HPI Review of Systems Constitutional: Negative for fatigue and fever. Respiratory: Negative for cough and shortness of breath. Cardiovascular: Negative for palpitations and leg swelling. Objective Physical Exam Neurological: General: No focal deficit present. Mental Status: Daily is oriented to person, place, and time. Psychiatric: Mood and Affect: Mood normal. Behavior: Behavior normal. Assessment/Plan Problem List Items Addressed This Visit Type 2 diabetes mellitus with stage 3b chronic kidney disease, without long-term current use of insulin ([facility]) - Primary New labs will be ordered for guidance of therapy, keep low carb/no sugar diet Relevant Orders Hepatic Function Panel Lipid Panel, Standard Hemoglobin A1c Primary hypertension Followed by nephrology, resulst were slightly above target, encouraged to keep low sodium diet, keep bp log, will follow up nephrology reccomendations, she is undergoing a-v fistula for dialysis preparation documented in this encounter Miscellaneous Notes * Assessment & Plan Note - Dieter Nicole MD - 04/27/2024 4:32 PM EDTAssociated Problem(s): Primary hypertension Followed by nephrology, resulst were slightly above target, encouraged to keep low sodium diet, keep bp log, will follow up nephrology reccomendations, she is undergoing a-v fistula for dialysis preparation documented in this encounter Plan of Treatment Upcoming Encounters Date Type Department Care Team (Late st Contact Info) Description 08/03/2024 11:15 AM EDT Telemedicine [facility] [address], [place] [phone] Dieter George MD [address] [place], [place] [phone] Scheduled Orders Name Type Priority Associated Diagnoses Orde r Schedule Hepatic Function Panel Lab Routine Type 2 diabetes mellitus with stage 3b chronic kidney disease, without long-term current use of insulin ([facility]) Expected: 04/27/2024 (Approximate), Expires: 04/27/2025 Lipid Panel, Standard Lab Routine Type 2 diabetes mellitus with stage 3b chronic kidney disease, without long-term current use of insulin (CMS/HCC) Expected: 04/27/2024 (Approximate), Expires: 04/27/2025 Hemoglobin A1c Lab Routine Type 2 diabetes mellitus with stage 3b chronic kidney disease, without long-term current use of insulin (CMS/HCC) Expected: 04/27/2024 (Approximate), Expires: 04/27/2025 documented as of this encounter Visit Diagnoses Diagnosis Type 2 diabetes mellitus with stage 3b chronic kidney disease, without long-term current use of insulin (CMS/HCC)- Primary Primary hypertension Unspecified essential hypertension documented in this encounter Additional Health Concerns Assessment Noted Time PHQ-9 Depression Total Score: 1 02/20/19 23 10:21 AM EST documented as of this encounter Care Teams Energy Projects Lead Relationship Specialty Start Date End Date Dieter Georeg MD [address] [place], [place] [phone] PCP - General Internal Medicine 07/14/19 documented as of this encounter
--- OUTSIDE RECORDS SUMMARY | 2024-05-01 08:55 | XMS_ITS | Encounter Summary ---
Author Organization [facility] Address [address] [phone] Phone Care Team Providers Care Engraving Press Operator Name Role Phone Dieter Suggs Primary Care Provider Encounter Details Date Type Department Care Team (Late st Contact Info) Description 04/02/2024 Orders Only [facility] [address] [phone] Twin Byrnes MD [facility] [phone] Stage 5 chronic kidney disease (HCC); Type 2 diabetes mellitus with diabetic chronic kidney disease (HCC); Renal osteodystrophy; Essential hypertension Social History Tobacco Use Types Packs/Day [...] on file documented as of this encounter Plan of Treatment Upcoming Encounters Date Type Department Care Team (Late st Contact Info) Description 07/01/2024 10:00 AM EDT Office Visit [facility] [address] [phone] Twin Byrnes MD [facility] [phone] documented as of this encounter Procedures Procedure Name Priority Date/Time Associated Diagnosis Comments MICROSCOPIC EXAMINATION - DO NOT USE Routine 03/31/2024 10:02 AM EST PROTEIN / CREATININE RATIO, URINE Routine 03/31/2024 10:02 AM EST URINE ALBUMIN / CREATININE RATIO Routine 03/31/2024 10:02 AM EST VITAMIN D 25 HYDROXY Routine 03/31/2024 10:02 AM EST URINALYSIS WITH MICROSCOPIC Routine 03/31/2024 10:02 AM EST CBC Routine 03/31/2024 10:02 AM EST PTH, INTACT Routine 03/31/2024 10:02 AM EST MAGNESIUM Routine 03/31/2024 10:02 AM EST RENAL FUNCTION PANEL Routine 03/31/2024 10:02 AM EST documented in this encounter Results * PTH, Intact (03/31/2024 10:02 AM EST) PTH 44 15 - 65 pg/mL [facility] 03/31/2024 10:0 2 AM EST 03/31/2024 Twin Byrnes MD LAB BLOOD ORDERABLES Final Re sult [facility] [address] [place] [address] * Magnesium (03/31/2024 10:02 AM EST) Magnesium 2.0 1.6 - 2.3 mg/dL [facility] 03/31/2024 10:0 2 AM EST 03/31/2024 Twin Byrnes MD LAB BLOOD ORDERABLES Final Re sult Performing Organization Address [facility] Co de Phone Number [facility] [employer] [facility] [address] [place] [address] * Vitamin D 25 Hydroxy (03/31/2024 10:02 AM EST) Vitamin D, 25-OH, Total 36.2 30.0 - 100.0 ng/mL [facility] Comment: Vitamin D deficiency has been defined by the [place] of Medicine and an Endocrine Society practice guideline as a level of serum 25-OH vitamin D less than 20 ng/mL (1,2). The Endocrine Society went on to further define vitamin D insufficiency as a level between 21 and 29 ng/mL (2). 1. IOM ([place] of Medicine). 2010. Dietary reference ?? intakes for calcium and D. [place]: The ?? [employer]. 2. Trevon MF, Mar YE, Nino SUERO, et al. ?? Evaluation, treatment, and prevention of vitamin D ?? deficiency: an Endocrine Society clinical practice ?? guideline. JCEM. 2010; 96(7):1911-30. 03/31/2024 10:0 2 AM EST 03/31/2024 Twin Byrnes MD LAB BLOOD ORDERABLES Final Re sult Performing Organization Address City/[facility]/ZIP Co de Phone Number [facility] [address] [place] [address] * (ABNORMAL) Urine Albumin / Creatinine Ratio (03/31/2024 10:02 AM EST) Albumin, Urine 33.3 Not Estab. ug/mL [facility] Albumin/Creatin ine Ratio 36(H) 0 - 29 mg/g creat [facility] Comment: ? Normal: ?0 - ??29 ? Moderately increased: 30 - 300 ? Severely increased: ? >300 03/31/2024 10:0 2 AM EST 03/31/2024 Twin Byrnes MD LAB URINE ORDERABLES Final Re sult Performing Organization Address [facility] de Phone Number [facility] [address] [place] [address] * (ABNORMAL) Protein, Total, Random Urine w/Creatinine (Protein/Creat Ratio) (03/31/2024 10:02 AM EST) Creatinine, Ur 91.4 Not Estab. mg/dL [facility] Protein, Ur 30.5 Not Estab. mg/dL [facility] Urine Protein/Creati nine Ratio 334(H) 0 - 200 mg/g creat [facility] 03/31/2024 10:0 2 AM EST 03/31/2024 Twin Byrnes MD LAB URINE ORDERABLES Final Re sult Performing Organization Address City/[facility] de Phone Number [facility] [address] [place] [address] * CBC (03/31/2024 10:02 AM EST) WBC 10.0 3.4 - 10.8 x10E3/uL [facility] RBC 4.08 3.77 - 5.28 x10E6/uL [facility] Hemoglobin 12.2 11.1 - 15.9 g/dL [facility] Hematocrit 37.8 34.0 - 46.6 % [facility] MCV 93 79 - 97 fL [facility] MCH 29.9 26.6 - 33.0 pg [facility] MCHC 32.3 31.5 - 35.7 g/dL [facility] RDW 12.2 11.7 - 15.4 % [facility] Platelets 270 150 - 450 x10E3/uL [facility] 03/31/2024 10:0 2 AM EST 03/31/2024 us Twin Byrnes MD LAB BLOOD ORDERABLES Final Re sult [facility] [address] [place] [address] * (ABNORMAL) Renal Function Panel (03/31/2024 10:02 AM EST) Glucose 128(H) 70 - 99 mg/dL [facility] BUN 65(H) 8 - 27 mg/dL [facility] Creatinine 3.03(H) 0.57 - 1.00 mg/dL [facility] eGFR CKD-EPI CR 2020 15(L) >59 mL/min/1.7 3 [facility] BUN/Creatinine Ratio 21 12 - 28 [facility] Sodium 140 134 - 144 mmol/L [facility] Potassium 5.4(H) 3.5 - 5.2 mmol/L [facility] Chloride 102 96 - 106 mmol/L [facility] Bicarbonate (CO2) 24 20 - 29 mmol/L [facility] Calcium 10.3 8.7 - 10.3 mg/dL [facility] Albumin 4.4 3.8 - 4.8 g/dL [facility] Phosphorus 3.8 3.0 - 4.3 mg/dL [facility] 03/31/2024 10:0 2 AM EST 03/31/2024 Twin Byrnes MD LAB BLOOD ORDERABLES Final Re sult [facility] [address] [place] [address] * (ABNORMAL) Microscopic Examination (03/31/2024 10:02 AM EST) WBC, Urine >30(A) 0 - 5 /hpf [facility] RBC, Urine None seen 0 - 2 /hpf [facility] Squamous Epithelial, Urine 0-10 0 - 10 /hpf [facility] Casts None seen None seen /lpf [facility] Bacteria, Urine None seen None seen/Few [facility] 03/31/2024 10:0 2 AM EST 03/31/2024 Tiwn Byrnes MD LAB MICROBIOLOGY - GENERAL OR DERABLES Final Result [facility] [address] [place] [address] * (ABNORMAL) Urinalysis with microscopic (03/31/2024 10:02 AM EST) Specific Ducor, Urine 1.017 1.005 - 1.030 [facility] [phone] pH Urine 6.5 5.0 - 7.5 [facility] [phone] Color, Urine Yellow Yellow [facility] Appearance Urine Clear Clear [facility] WBC Esterase Urine 2+(A) Negative [facility] Protein, Ur 1+(A) Negative/Tra ce [facility] Glucose, Ur 2+(A) Negative [facility] [phone] Ketones, Urine Negative Negative [facility] Blood Urine Negative Negative [facility] Bilirubin Urine Negative Negative [facility] Urobilinogen Urine 0.2 0.2 - 1.0 mg/dL [facility] Nitrite, Urine Negative Negative [facility] Microscopic Examination See below: [facility] Comment:Microscopic was luke cated and was performed. 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
--- OUTSIDE RECORDS SUMMARY | 2024-05-01 08:55 | XMS_ITS | Encounter Summary ---
Author Organization [employer] Address [address] [facility] 7 [place] [address] Care Team Providers Care Graduate Teaching Associate Name Role Phone Dieter George MD Primary Care Prov ider Reason for Visit * Reason Onset Date Comments HDF appt 06/18/2022 Encounter Details Date Type Department Care Team ([facility] st Contact Info) Description 06/18/2022 Telephone [facility] [address] [place], [place] [phone] Dieter George MD [address] [place] [address] HDF appt Social History Tobacco Use Types Packs/Day Years [...] AM EDT documented as of this encounter Miscellaneous Notes * Telephone Encounter - Marissa Diamond RN - 06/18/2022 3:24 PM EDT Message below noted. Pt to f/u as scheduled on 06/26/22. Will forward to PCP a FYI. * Telephone Encounter - Marissa Diamond RN - 06/18/2022 3:24 PM EDT ----- Message from Pita Beltrán sent at 06/18/2022 1:55 PM EDT ----- T/c to patient, daughter Dea answered call and confirmed name and . HDF appt was scheduled for 06/26/2022 at 9:45am with PCP. Daughter stated '' called patient when she was in [facility] and told daughter once patient gets back to [place] to call the office to schedule appointment [id number]''. Daughter stated patient has new medications and some medication needs refill. Daughter unable to provide me with the medication's name since is hard to pronounce the medication name. Daughter will bring the discharge paperwork tomorrow 06/19/2022 to [facility] to be scan to patient 's chart. * Telephone Encounter - Nataliia Malin - 06/18/2022 11:48 AM EDT TC from patient daughter calling for HDF follow up appointment. Patient hospitalized at [facility] on 05/18/22 and discharged on 05/26/22 due to a stroke . Daughter informed they just got back from vacation yesterday 06/17/22 . Daughter advised will forward to nurse for follow up and appointment scheduling. documented in this encounter Plan of Treatment Upcoming Encounters Date Type Department Care Team (Late st Contact Info) Description 08/03/2024 11:15 AM EDT Telemedicine [facility] [address] [place] [address] Dieter George MD [address] [place] [address] documented as of this encounter Visit Diagnoses Not on filedocumented in this encounter Additional Health Concerns Assessment Noted Time PHQ-9 Depression Total Score: 1 02/20/19 23 10:21 AM EST documented as of this encounter Care Teams Graduate Teaching Associate Relationship Specialty Start Date End Date Dieter George MD [address] [place] [phone] PCP - General Internal Medicine 07/14/19 documented as of this encounter
--- OUTSIDE RECORDS SUMMARY | 2024-05-01 08:55 | XMS_ITS | Data Portability ---
Author Organization [place] - [facility], Allergy Address [address] [address] Assessment Encounter Date Assessment Date Assessment LastModified by Organization Details LastModified Time 10/01/2023 10/01/2023 Reviewed with family that neurologic testing was largely reassuring and the imbalance when ambulating is likely due to age, diabetic neuropathy, and the issues with her feet. 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 For the hearing asymmetry, differential diagnosis was reviewed to include acoustic neuroma versus other retrocochlear pathology. Due to age and comorbidities, as well as the reportedly benign brain MRI obtained within the past 6 months, family elected against MRI of IACs. As the hearing loss is stable to the May audiogram they brought in, and in fact largely stable to a 2018 audiogram she had at this facility, recommend dropping to annual audiometric testing. Recommend binaural amplification and paperwork for the above was provided. [email or web address] Not available 10/01/2023 16:05:23 Plan of Treatment Reminders Order Date Submit Date Provider Last Modified By Organization Details Last Modified Time Details Appointments None record ed. Lab None record ed. Referral None record ed. Procedures None record ed. Surgeries None record ed. Imaging None record ed. Medication Orders None record ed. Patient TargetsNo targets recorded. Patient InstructionsNo instructions recorded. Reason for Referral None Reported. Results Created Date Observation Date Name Description Value Unit Range Abnormal Flag Note LastModifiedBy Organization Detail LastModifiedTime 10/02/19 24 audio gram No observ ation record ed. [email or web address] Not Available 09/18 08:41:12 10/09/19 24 05/24/2023 imagi ng/di agnos tic resul t No observ ation record ed. [email or web address] Not Available 20:00:33 10/09/19 24 07/07/2018 imagi ng/di agnos tic resul t No observ ation record ed. [email or web address] Not Available 20:00:42 10/09/19 24 07/07/2018 imagi ng/di agnos tic resul t No observ ation record ed. [email or web address] Not Available 20:00:44 10/09/19 24 07/07/2018 audio gram No observ ation record ed. [email or web address] Not Available 20:00:50 Result Notes None recorded. Problems Name Problem SNOMED Code Status Onset Date Resolution Date Notes Provider Name and Address Organization Details Recorded Time Sensorine ural hearing loss of bilateral ears 004476710 Active 2016 Sensorineu ral hearing loss, bilateral; Note: Date Diagnosed: 12/24/2016 12:02 PM (H90.3) Not Available [facility] 4 03:32:25 Unsteady when walking 66282026 Active 2023 PRAFUL LINK PA-C [address] [place] [address],[place] [address], [place], [address] , [facility] - [facility] 4 16:09:09 Benign paroxysma l positiona l vertigo 314099115 Active 2023 PRAFUL LINK PA-C [address] [place] [address],[place] [address], [place], [phone] , [facility] - [facility] 4 16:09:14 Problem Notes None recorded. Procedures Surgical History Date Name Laterality Status Provider Name and Address Organization Details Recorded Time 10/01/19 24 Tympanometry (94941) completed ESTHELA DOVER [place], CCC-A [address] [facility],[place] [address], [place], [address], [facility] - [facility] 10/01/2023 15:23:31 10/01/19 24 [employer] (40605) completed ESTHELA DOVER MA, CCC-A [address] [facility],[address], [address], [place] - [facility] 10/01/2023 15:23:25 Imaging Results Imaging Date Name Status [facility] Details LastModified Time 10/02/2023 audiogram completed Information n ot available 10/02/2023 08:41:12 05/24/2023 imaging/diagno stic result completed Information not available 10/09/2023 20:00:33 07/07/2018 imaging/diagno stic result completed Information not available 10/09/2023 20:00:42 07/07/2018 imaging/diagno stic result completed Information not available 10/09/2023 20:00:44 07/07/2018 audiogram completed Information not available 10/09/2023 20:00:50 Procedure Notes None recorded. Medical Equipment None Reported. Medications Name Sig Start Date Stop Date Status Note LastModified by Organization Details LastModified Time medbox status USE DIRECTED active Not Available Not Available No t Available multivitam in tablet TAKE 1 TABLET EVERY MORNING active Not Available Not Available No t Available atorvastat in 80 mg tablet TAKE ONE TABLET EVERY MORNING active Not Available Not Available No t Available atenolol 100 mg-chlorth alidone 25 mg tablet 2016 active Medicatio n ID: [id number] Du ration Value: 30 Brand Name: atenolol- chlorthal idone Sen d Method: E-Prescri bed Subs Allowed: subs OK Specia l Instructi on: TAKE (1) TABLET DAILY. Il dicationG enericNam e: atenolol- chlorthal idone Not Available Not Available Not Available atorvastat in 20 mg tablet 2016 active Medicatio n ID: [id number] Du ration Value: 30 Brand Name: atorvasta tin Send Method: E-Prescri bed Subs Allowed: subs OK Specia l Instructi on: TAKE (1) TABLET DAILY. Me dicationG enericNam e: atorvasta tin Not Available Not Available Not Available ketotifen 0.025 % (0.035 %) eye drops PLACE ONE DROP IN THE AFFECTED EYE(S) TWICE DAILY NEEDED FOR ALLERGY active Not Available Not Available No t Available polyvinyl alcohol 1.4 % eye drops PLACE ONE DROP IN EACH EYE THREE TIMES DAILY IN THE MORNING, AT NOON, AND AT BEDTIME FOR DRY active Not Available Not Available No t Available alendronat e 70 mg tablet 2016 active Medicatio n ID: [id number] Du ration Value: 29 Brand Name: alendrona te Send Method: E-Prescri bed Subs Allowed: subs OK Specia l Instructi on: TAKE 1 TABLET ONCE A WEEK WITH 6 TO 8 OZ WATER 30 MIN BEFORE 1ST FOOD OF DAY. DO NOT LIE DOWN FOR 30 MINUTES M edication GenericNa me: alendrona te Not Available Not Available Not Available atenolol 50 mg-chlorth alidone 25 mg tablet TAKE 1 TABLET EVERY MORNING active Not Available Not Available No t Available allopurino l 100 mg tablet TAKE ONE-HALF TABLET EVERY MORNING active Not Available Not Available No t Available aspirin 81 mg tablet,del ayed release 2016 active Medicatio n ID: [id number] Du ration Value: 30 Brand Name: aspirin S end Method: E-Prescri bed Subs Allowed: subs OK Specia l Instructi on: TAKE (1) TABLET DAILY. Me dicationG enericNam e: aspirin Not Available Not Available Not Available acetaminop hen ER 650 mg tablet,ext ended release TAKE TWO TABLETS EVERY 8 HOURS NEEDED, DO NOT BREAK, CRUSH, DISSOLVE OR CHEW active Not Available Not Available No t Available amitriptyl ine 25 mg tablet TAKE ONE TABLET EVERY NIGHT AT BEDTIME NEEDED active Not Available Not Available No t Available indomethac in 50 mg capsule 2017 active Medicatio n ID: [id number] Du ration Value: 15 Brand Name: indometha lucy Send Method: E-Prescri bed Subs Allowed: subs OK Specia l Instructi on: TAKE ONE CAPSULE BY MOUTH THREE TIMES DAILY WITH FOOD Medi cationGen ericName: indometha lucy Not Available Not Available Not Available aspirin 81 mg chewable tablet CHEW ONE TABLET EVERY MORNING active Not Available Not Available No t Available allopurino l 300 mg tablet 2017 active Medicatio n ID: [id number] Du ration Value: 30 Brand Name: allopurin ol Send Method: E-Prescri bed Subs Allowed: subs OK Specia l Instructi on: TAKE ONE TABLET BY MOUTH EVERY DAY Medic ationGene ricName: allopurin ol Not Available Not Available Not Available losartan 100 mg tablet TAKE ONE TABLET EVERY MORNING active Not Available Not Available No t Available clotrimazo le 1 % topical cream APPLY TO AFFECTED AREA(S) AND SURROUNDI NG AREA(S) TWICE DAILY IN THE MORNING AND EVENING active Not Available Not Available No t Available Allergy Relief (loratadin e) 10 mg tablet 2017 active Medicatio n ID: [id number] Du ration Value: 30 Brand Name: loratadin e Send Method: E-Prescri bed Subs Allowed: subs OK Specia l Instructi on: TAKE ONE TABLET BY MOUTH EVERY DAY NEEDED FOR allergies Medicati onGeneric Name: loratadin e Not Available Not Available Not Available Alcohol Prep Pads USE THREE DAILY USE THREE DAILY active Not Available Not Available No t Available calcium 600 mg (as carbonate) -vitamin D3 10 mcg (400 unit) tablet TAKE 1 TABLET TWICE DAILY IN THE MORNING AND AT BEDTIME active Not Available Not Available No t Available FreeStyle Lite Strips USE TO TEST BLOOD SUGAR TWICE DAILY active Not Available Not Available No t Available melatonin 5 mg tablet TAKE TWO TABLETS EVERY DAY AT BEDTIME active Not Available Not Available No t Available Tradjenta 5 mg tablet TAKE ONE TABLET EVERY MORNING active Not Available Not Available No t Available Artificial Tears (we653-epg sienna-gly cerin) 1 %-0.2 %-0.2 % eye drops PLACE ONE DROP IN EACH EYE THREE TIMES DAILY NEEDED FOR ojos seca active Not Available Not Available No t Available Vascepa 1 gram capsule TAKE TWO CAPSULES TWICE DAILY IN THE MORNING AND EVENING WITH MEALS active Not Available Not Available No t Available Easy Touch Twist Lancets 33 gauge TEST BLOOD SUGAR THREE TIMES DAILY active Not Available Not Available No t Available white petrolatum 42 % topical ointment APPLY TO ENTIRE BODY DAILY AFTER SHOWER OR BATH TO PREVENT RASH active Not Available Not Available No t Available Farxiga 10 mg tablet TAKE ONE TABLET EVERY MORNING active Not Available Not Available No t Available Vitals Date Recorded Body height Body mass index (BMI) Body weight Provider Name and Address Organization Details Last Updated DateTime 10/01/2023 142.24 cm 38.1 kg/m2 30201.7 g Saran Paz [facility] 10/01/2023 14:22:45 Social History None recorded. Functional Status None recorded. Mental Status None recorded. Family History Nothing Reported. Medical History No medical history recorded. Gynecological HistoryNo gynecological history recorded. Obstetrics History GPAL:G 0 P 0 0 0 0 Past Encounters Encounter ID Performer Location Encounter Start Date Encounter Closed Date Diagnosis/Indication Diagnosis SNOMED-CT Code Diagnosis ICD10 Code Diagnosis Note [id number] PRAFUL LINK PA-C [facility] [address] [address] 10/01/2023 13:42:04 10/01/2023 16:08:23 Sensorineural hearing loss of bilateral ears 841965698 H90.3 Audiologic al evaluation results: Right ear: {{Normal N ormal through 2 kHz Mild M oderate Mo derately-s evere Gwen re Profoun d Normal thru 500Hz#}} {{hearing sloping to a mild slopi ng to a moderate s loping to moderately severe slo ping to severe slo ping to profound f lat high frequency low frequency mid frequency cookie bite odell curve slop ing to a moderately severe SNHL#}} Left ear: {{Normal N ormal through 2 kHz Mild M oderate Mo derately-s evere* Sev ere Profou nd}} {{hearing sloping to a mild slopi ng to a moderate s loping to moderately severe slo ping to severe slo ping to profound f lat high frequency low frequency mid frequency cookie bite odell curve SNHL #}} Tympanomet ry: Right Ear:{{Type A* Type As Type Ad Type C Type C, shallow & rounded Ty pe B Type B with large volume Cou ld not maintain a hermetic seal}} Left Ear:{{Type A* Type As Type Ad Type C Type C, shallow & rounded Ty pe B Type B with large volume Cou ld not maintain a hermetic seal}} Benign par oxysmal positional vertigo 564109908 H81.10 Unsteady when walking 22 734071 R26.89 Health Concerns Section Related Observation LastModified by Organization Detai ls LastModified Time None Recorded Concern Status LastModified by Organization Details LastModified Time None Recorded Advance Directives Directive None Recorded Payers Encounter Date Sequence Insurance Name Policy Number Policy Lockhart Covered Member ID Lockhart Member ID Guarantor Name 10/01/2023 1 [place] [facility] Daily Babcock [id number] Daily Babcock Notes Date Note Type Note Provider Name and Address Organization Details Recorded Time 10/01/2023 text/html 78 year old asa beckman presents with her daughter for evaluation of ears and hearing. She reports her hearing is poor. Daughter provides most of the history as patient has difficulty hearing the housekeeper caregiver. Daughter reports patient lost her hearing a long time ago. Can only hear a little bit out of the right ear. They are here to get hearing aids. The hearing loss has been gradual over time. The patient never complains of otalgia and there is no otorrhea. When she lies down she feels like she is spinning. Closing her eyes helps. Daughter states she is always off balance when ambulating without sensation of spinning. Has been going on for many years, 20 or more. No improvement since she had eye surgery, though her vision is good now. She has a history of two heart attacks, most recently April 2021. She has a history of diabetes and numbness and tingling in the feet and legs. No known problems with her hips, knees, nor ankles, though she does have deformity in the toes. Patient does not have a significant history of recurrent otitis media and has never had an ear surgery. She brings with her an audiogram from May from [facility] demonstrating asymmetric hearing loss. Daughter reports patient had an MRI of the brain about 6 months ago that was normal. She has also been through physical therapy. PRAFUL LINK PA-C [address] [place] [address], [phone], [facility] - [facility] 10/01/2023 16:09:46 OBGyn Episode No OBEpisode recorded.
--- OUTSIDE RECORDS SUMMARY | 2024-05-01 08:55 | XMS_ITS | Encounter Summary ---
Author Organization [employer] Address [address] [facility] [address] [place] [address] Care Team Providers Care Metal Solderer Name Role Phone Dieter George MD Primary Care Prov ider Reason for Visit * Reason Comments Med Refill Encounter Details Date Type Department Care Team ([facility] st Contact Info) Description 04/09/2024 Refill [facility] MED[facility] [address] [place] [address] Dieter George MD [address] [place] [address] Type 2 diabetes mellitus with microalbuminuria, without long-term current use of insulin ([facility]) Social History Tobacco Use Types Packs/Day Years [...] Upcoming Encounters Date Type Department Care Team ([facility] st Contact Info) Description 08/03/2024 11:15 AM EDT Telemedicine [facility] MED & PEDS [address] [place] [address] Dieter George MD [address] [place] [address] documented as of this encounter Visit Diagnoses Diagnosis Type 2 diabetes mellitus with microalbuminuria, without long-term current use of insulin ([facility]) documented in this encounter Additional Health Concerns Assessment Noted Time PHQ-9 Depression Total Score: 1 02/20/19 23 10:21 AM EST documented as of this encounter Care Teams Metal Solderer Relationship Specialty Start Date End Date Dieter George MD [address] [place] [address] PCP - General Internal Medicine 07/14/19 documented as of this encounter
--- OUTSIDE RECORDS SUMMARY | 2024-05-01 08:55 | XMS_ITS | Encounter Summary ---
Author Organization [facility] Address [address] [facility] [address] [place] [address] Phone Care Team Providers Care Mason Tender Restoration Labor Name Role Phone Dieter [place] Primary Care Provider [phone] Encounter Details Date Type Department Care Team (Latest Contact Info) Description 08/30/2023 Office Communication [facility] [address] [facility] [address] [place] [phone] Twin Byrnes MD [address] [facility] [address] [place] [address] Hypertensive heart and chronic kidney disease without heart failure, with stage 1 through stage 4 chronic kidney disease, or unspecified chronic kidney disease (Primary Dx) Social History Tobacco Use Types Packs/Day Years [...] on file documented as of this encounter Miscellaneous Notes * Telephone Encounter - Twin Byrnes MD - 09/23/2023 11:07 AM EDT Call her to get new med sent to her pharmacy * Telephone Encounter - Twin Byrnes MD - 08/30/2023 4:30 PM EDT Needs sooner f/u in 4-6 wks documented in this encounter Plan of Treatment Upcoming Encounters Date Type Department Care Team (Late st Contact Info) Description 07/01/2024 10:00 AM EDT Office Visit [facility] [address] [address] Twin Byrnes MD [address] [address] documented as of this encounter Results * (ABNORMAL) Renal function panel (09/19/2023 9:00 AM EDT) Glucose 123(H) 70 - 99 mg/dL [facility] BUN 60(H) 8 - 27 mg/dL [facility] Creatinine 2.97(H) 0.57 - 1.00 mg/dL [facility] eGFR CKD-EPI CR 2020 16(L) >59 mL/min/1.7 3 [facility] BUN/Creatinine Ratio 20 12 - 28 [facility] Sodium 142 134 - 144 mmol/L [facility] Potassium 5.7(H) 3.5 - 5.2 mmol/L [facility] Chloride 101 96 - 106 mmol/L [facility] Bicarbonate (CO2) 26 20 - 29 mmol/L [facility] Calcium 10.7(H) 8.7 - 10.3 mg/dL [facility] Comment:Verified by repeat analysis Albumin 4.3 3.8 - 4.8 g/dL [facility] Phosphorus 4.6(H) 3.0 - 4.3 mg/dL [facility] Blood (Blood, Venous) 09/19/2023 9:00 AM EDT 09/19/2023 us Twin Byrnes MD LAB BLOOD ORDERABLES Final Re sult [facility] [address] [place] [phone] documented in this encounter Visit Diagnoses Diagnosis Hypertensive heart and chronic kidney disease without heart failure, with stage 1 through stage 4 chronic kidney disease, or unspecified chronic kidney disease- Primary documented in this encounter Care Teams Mason Tender Restoration Labor Relationship Specialty Start Date End Date Dieter [place] [address] [place] [address] PCP - General Internal Medicine 07/27/21 documented as of this encounter
--- OUTSIDE RECORDS SUMMARY | 2024-05-01 08:55 | XMS_ITS | Encounter Summary ---
Author Organization [employer] Address [address] [facility] [address] [place] [address] Care Team Providers Care Kickboxing Instructor Name Role Phone Dieter George MD Primary Care Prov ider Reason for Visit * Reason Onset Date Comments chart prep 04/24/2024 Encounter Details Date Type Department Care Team ([facility] st Contact Info) Description 04/24/2024 Telephone [facility] MED & PEDS [address] [place], [place] [phone] Dieter George MD [address] [place] [address] chart prep Social History Tobacco Use Types Packs/Day Years [...] encounter Miscellaneous Notes * Telephone Encounter - Linh Rachel MA - 04/24/2024 3:58 PM EST Chart Prep Labs: done Images: done Vaccines due: yes Referrals: pending appt Screenings: eye exam Overdue care gaps: A1C, Glucose, Sbirt, SDOH, PHQ-9 documented in this encounter Plan of Treatment Upcoming Encounters Date Type Department Care Team (Late st Contact Info) Description 08/03/2024 11:15 AM EDT Telemedicine [facility] PEDS [address] [place] [address] Dieter George MD [address] [place] [address] documented as of this encounter Visit Diagnoses Not on filedocumented in this encounter Additional Health Concerns Assessment Noted Time PHQ-9 Depression Total Score: 1 02/20/19 23 10:21 AM EST documented as of this encounter Care Teams Kickboxing Instructor Relationship Specialty Start Date End Date Dieter George MD [address] [place] [address] PCP - General Internal Medicine 07/14/19 documented as of this encounter
--- OUTSIDE RECORDS SUMMARY | 2024-05-01 08:55 | XMS_ITS | Clinical Summary ---
Author Organization [employer] Address [address] [place] [address] Care Team Providers Care Bereavement Program Coordinator Name Role Phone Dieter George MD Primary Care Prov ider Allergies No known active allergies Medications Farxiga 10 MG Take 1 tablet by mouth in the morning. 023 Active Blood Glucose Monitoring Suppl ([employer] [place] Lite) w/Device kit TEST BLOOD SUGAR THREE TIMES DAILY. 1 kit 023 Active Clotrimazole Anti-Fungal 1 % cream APPLY TO AFFECTED AREA(S) AND SURROUNDING AREA(S) TWICE DAILY IN THE MORNING AND EVENING 180 g 11 023 Active allopurinol (Zyloprim) 100 MG tabletIndications :Idiopathic chronic gout of multiple sites without tophus TAKE ONE-HALF TABLET EVERY MORNING 45 tablet 5 024 Active amitriptyline (Elavil) 25 MG tabletIndications :Neuropathy TAKE ONE TABLET EVERY NIGHT AT BEDTIME NEEDED 90 tablet 024 Active atenolol-chlortha lidone (Tenoretic) 50-25 MG tabletIndications :Primary hypertension TAKE ONE TABLET EVERY MORNING 90 tablet 5 024 Active atorvastatin (Lipitor) 80 MG tabletIndications :Mixed hyperlipidemia TAKE ONE TABLET EVERY MORNING 90 tablet 5 024 Active Multiple Vitamin (Multivitamin) tabletIndications :Vitamin D deficiency TAKE ONE TABLET EVERY MORNING 90 tablet 5 024 Active Calcium + Vitamin D3 600-10 MG-MCG tabletIndications :Vitamin D deficiency TAKE ONE TABLET TWICE DAILY IN THE MORNING AND AT BEDTIME 180 tablet 5 03/01/2 024 Active losartan (Cozaar) 100 MG tablet TAKE ONE TABLET EVERY MORNING 90 tablet 3 Active Aspirin Low Dose 81 MG chewable tablet CHEW ONE TABLET EVERY MORNING 90 tablet 3 Active Artificial Tears 0.2-0.2-1 % solutionIndicatio ns: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 PLACE ONE DROP IN EACH EYE THREE TIMES DAILY NEEDED FOR ojos seca 15 mL 3 Active Vascepa 1 g capsule TAKE TWO CAPSULE TWICE DAILY IN THE MORNING AND EVENING WITH MEALS 360 capsule 3 Active Petrolatum 42 % ointment APPLY TO ENTIRE BODY DAILY AFTER SHOWER OR BATH TO PREVENT RASH 400 g Active glucose blood (FREESTYLE LITE) test stripIndications: Type 2 diabetes mellitus with microalbuminuria, without long-term current use of insulin ([facility]) To monitor glucose BID 100 strip Active acetaminophen (Tylenol 8 Hour) 650 MG ER tabletIndications :Pain in other joint TAKE TWO TABLETS EVERY 8 HOURS NEEDED, DO NOT BREAK, CRUSH, DISSOLVE OR CHEW 90 tablet 2 Active melatonin 5 MG tablet Take 2 tablets (10 mg) by mouth at bedtime. 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 PLACE ONE DROP IN EACH EYE THREE TIMES DAILY IN THE MORNING, AT NOON, AND AT BEDTIME FOR DRY 15 mL 3 Active Ketotifen Fumarate (Eye Itch Relief) 0.035 % solution PLACE ONE DROP IN THE AFFECTED EYE(S) TWICE DAILY NEEDED FOR ALLERGY 5 mL Active Tradjenta 5 MG tabletIndications :Type 2 diabetes mellitus with microalbuminuria, without long-term current use of insulin ([facility]) TAKE ONE TABLET EVERY MORNING 30 tablet Active Alcohol Swabs (Alcohol Prep) 70 % padsIndications:T ype 2 diabetes mellitus with microalbuminuria, without long-term current use of insulin ([facility]) USE THREE DAILY USE THREE DAILY 100 each Active Easy Touch Lancets 33G/Twist miscIndications:T ype 2 diabetes mellitus with microalbuminuria, without long-term current use of insulin ([facility]) TEST BLOOD SUGAR THREE TIMES DAILY 100 each 11 025 Active Easy Touch Lancets 33G/Twist miscIndications:T ype 2 diabetes mellitus with microalbuminuria, without long-term current use of insulin ([facility]) TEST BLOOD SUGAR THREE TIMES DAILY 100 each 11 024 2024 Discontinued Alcohol Swabs (Alcohol Prep) 70 % padsIndications:T ype 2 diabetes mellitus with microalbuminuria, without long-term current use of insulin ([facility]) USE THREE DAILY 100 each 11 024 2024 Discontinued Active Problems Problem Noted Date Diagnosed Date Snoring 03/08/2024 Assessment & Plan (03/08/2024 1:58 PM EST): Will place referral for sleep study Complete edentulism 09/17/2022 Chronic renal disease, stage V 08/01/2022 Assessment & Plan (08/02/2022 12:46 PM EDT): Followed by nephrology, Elevated triglycerides with high cholesterol Assessment & Plan (07/03/2022 3:54 PM EDT): Patient on atorvastatin 80mg, she recently had a ischemic stroke, will add vascepa based on her renal function, will follow up in [address] Stage 4 chronic kidney disease 07/03/2022 Assessment & Plan (03/08/2024 1:57 PM EST): Followed by nephrology, she is being prepared for future dialysis, Assessment & Plan (10/06/2023 10:40 PM EDT): Followed by nephrology, will follow up reccomendations Assessment & Plan (07/03/2022 3:55 PM EDT): Discussed recent lab results, her renal function deteriorated, avoid NSAId stay well hydrated, told to follow up with oil processing technician as soon as posible Ischemic stroke 06/26/2022 Assessment & Plan (12/11/2023 12:04 AM EDT): Will place new referral to neurology, Assessment & Plan (03/05/2023 8:29 PM EST): No new neurologic deficit, follow up with neurology Assessment & Plan (12/30/2022 8:28 PM EST): Patient was seen by neurology, they declined physical therapy, continue home exercises and stretching Assessment & Plan (08/02/2022 12:47 PM EDT): Echocardiogram and carotid ultrasound is shceduled, pending neurology evaluation. Will send DME for portable toilet as requested by daughter Assessment & Plan (06/26/2022 12:51 PM EDT): Patient suffered a ischemic stroke on 05/17/22 at [facility], patient was hospitalized for 5 days. On examination she has more memory loss, preserved upper/lower extremity strength. She is on atorvastatin 80mg, will leave on aspirin 81mg, DM well controlled a1c 6.7%.. New labs will be ordered will discontinue plavix and fenofibrate, echo/carotid u/s ordered and will refer to neurology Type 2 diabetes mellitus wit h stage 3b chronic kidney disease, without long-term current use of insulin 03/20/2022 Assessment & Plan (10/06/2023 10:42 PM EDT): Continue current therapy, encouraged low carb/no sugar diet, follow up in 3-4 monts Assessment & Plan (07/03/2023 11:25 PM EDT): Contrlled, A1c was 6.4%, keep low carb/no sugar diet, will follow up in 6 months Assessment & Plan (05/09/2023 10:03 AM EDT): No reported episode of hypoglycemia, no changes will be done, keep low carb/no sugar diet Assessment & Plan (12/30/2022 8:33 PM EST): Last A1c from 06/2022 <7.0%, no changes will be made, reinforced low carb/no sugar diet. Assessment & Plan (08/02/2022 12:46 PM EDT): Controlled, reinforced low carb/no sugar diet, no changes will be made Assessment & Plan (06/26/2022 12:53 PM EDT): Controlled, a1c today was 6.7%, reinforced importance of diet Tod to reschedule eye exam should be done yearly Assessment & Plan (03/20/2022 1:46 PM EST): Controlled, last a1c from 12/2021 was 7.6%, no changes in medication will be made, reinforced low carb diet, avoid sugars. Primary hypertension 03/20/2022 Assessment & Plan (04/27/2024 4:32 PM EDT): Followed by nephrology, resulst were slightly above target, encouraged to keep low sodium diet, keep bp log, will follow up nephrology reccomendations, she is undergoing a-v fistula for dialysis preparation Assessment & Plan (03/08/2024 1:57 PM EST): Controlled, continue low sodium diet and exercise as tolerated, keep bp log, follow up in 3-4 months Assessment & Plan (12/11/2023 12:06 AM EDT): Has remained stable, continue current treatment, encouraged low sodium diet, keep bp log, will refer to ardiology as she lost follow up Assessment & Plan (10/06/2023 10:39 PM EDT): Controlled continue low sodium diet and exercise as tolerated, follow up in 4 months, Assessment & Plan (07/03/2023 11:24 PM EDT): Controlled, conitnue losartan 100mg, keep bp log at home, keep low sodium diet, target <140/90 Assessment & Plan (05/09/2023 10:03 AM EDT): Controlled, continue current medications, follow up in 4 months Patient will be traveling will prepare a letter with all her medications Assessment & Plan (12/30/2022 8:30 PM EST): Controlled, continue low sodium diet, keep bp log, no changes will be made Assessment & Plan (08/02/2022 12:46 PM EDT): Controlled, reinforced low sodium diet, no changes will be made target<130/80 Assessment & Plan (06/26/2022 12:52 PM EDT): Not at target, will increase losartan to 100mg, reinforced low sodium diet Follow up in 1 month Assessment & Plan (03/20/2022 1:47 PM EST): Controlled, followed by oil processing technician, no changes will be made, she will be traveling an will be returning in 3 months, will follow when she arrives to perform new labs Mixed hyperlipidemia 03/20/2022 Assessment & Plan (03/05/2023 8:23 PM EST): Andree has been complaint with oral treatment and diet reccoemndations, last cholesterol/ldl were stable, will leave on current therapy Assessment & Plan (08/02/2022 12:47 PM EDT): Pending vascepa approval, continue atorvastatin 80mg Assessment & Plan (06/26/2022 12:53 PM EDT): New labs will be ordered for guidance of therapy Assessment & Plan (03/20/2022 1:48 PM EST): Continue staitn therapy, no changes will be made Eye dryness 02/20/2022 Dryness of periwound skin 02/20/2022 Hearing loss 08/28/2016 Assessment & Plan (05/09/2023 10:07 AM EDT): Bilateral hearing loss, will send for audiology test was done over 3 years ago Encounters Date Type Department Care Team Description 04/27/2024 2:15 PM EDT Telemedicine [facility] [address] [place] [address] Dieter George MD Type 2 diabetes mellitus with stage 3b chronic kidney disease, without long-term current use of insulin ([facility]) (Primary Dx); Primary hypertension 04/27/2024 Travel 04/24/2024 Telephone [facility] [address] [place] [address] Dieter George MD chart prep 04/09/2024 Refill [facility] [address], [place] [phone] Dieter George MD Type 2 diabetes mellitus with microalbuminuria, without long-term current use of insulin ([facility]) 02/07/2024 Refill [facility] [address] [place] [address] Dieter George MD Type 2 diabetes mellitus with microalbuminuria, without long-term current use of insulin ([facility]) from Last 3 Months Immunizations Name Administration Dates Next Due Influenza High-dose Quadrivalent Preservative Fr ee 01/29/2023,02/15/2020 Influenza injectable quadriv alent IIV4 with preservative 12/04/2018,05/10/2015 Influenza injectable quadrivalent preservative f ree 11/19/2016,05/10/2016 Influenza, High Dose Seasonal, Preservative Free 11/19/2023 Pfizer Covid-19 Vaccine 12+ 11/19/2023 Pneumococcal Conjugate PCV 20 01/29/2023 Pneumococcal Polysaccharide PPSV23 05/10/2015 Tdap 05/10/2015 Social History Tobacco Use Types Packs/Day Years Used Date Smoking Tobacco: Never Passive Smoke Exposure: Never Smokeless Tobacco: Never Tobacco Cessation:Counseling Given: Not Answered Alcohol Use Standard Drinks/Week Comments Defer 0 [...] not to disclose 2021 10:29 AM EDT Last Filed Vital Signs Vital Sign Reading Time Taken Comments Blood Pressure 146/84 04/27/2024 4:30 PM EDT Pulse 88 01/29/2024 2:33 PM EST Temperature 37.1 ??C (98.7 ??F) 01/29/2024 2:33 PM ES T Respiratory Rate 20 01/29/2024 2:33 PM EST Oxygen Saturation 96% 12/09/2023 3:42 PM EDT Inhaled Oxygen Concentration - - Weight 79.8 kg (176 lb) 01/29/2024 2:33 PM EST Height 142.2 cm (4' 8 ) 01/29/2024 2:33 PM EST Body Mass Index 39.46 01/29/2024 2:33 PM EST Plan of Treatment Upcoming Encounters Date Type Department Care Team ([facility] st Contact Info) Description 08/03/2024 11:15 AM EDT Telemedicine [facility] [address] [place] [address] Dieter George MD [address] [place], [place] [phone] Health Maintenance Due Date Last Done Comments Dental Prophylaxis 1945 Dental X-Ray: Bitewings 1945 Eye Exam 1955 Alcohol/Substance Use Screening 1957 Zoster Vaccines (1 of 2) 1995 RSV Patients and Patients Aged 60 years or older (1 - 1-dose 75+ series) 01/19/2020 Depression Screening 02/20/2023 02/20/2022, 02/20/19 23 SDOH Screening 02/20/2023 02/20/2022 Dental Oral Exam 03/21/2023 09/17/2022, , 08/12/2020 Diabetes: Foot Exam 09/27/2023 09/26/2022, 09/26/2022, 09/26/2022, Additional history exists Tobacco Screening 10/16/2023 10/15/2022 Diabetes: Hemoglobin A1C 03/10/2024 024, 08/21/2023, 01/29/2023, Additional history exists Lipid Panel 08/20/2024 08/21/2023, 08/0 10/2022, 06/26/2022, Additional history exists DTaP/Tdap/Td Vaccines (2 - Td or Tdap) 05/09/2025 05/10/2015 Dental X-Ray: Full Mouth 09/18/2025 09/17/2022, 07/21 Hepatitis C Screening Completed 06/26/2022, 022 Pneumococcal Vaccine: 50+ Years Completed 01/29/2023, 05/10/2015 [...] patient's age to complete this topic Meningococcal Vaccine Aged Out No courtney sanchez eligible based on patient's age to complete this topic RSV under 20 months Aged Out No longe r eligible based on patient's age to complete this topic Rotavirus Vaccines Aged Out No longer eligible based on patient's age to complete this topic Procedures Procedure Name Priority Date/Time Associated Diagnosis Comments POCT GLYCATED HEMOGLOBIN, TOTAL Routine 12/09/2023 3:45 PM EDT Type 2 diabetes mellitus with microalbuminuria, without long-term current use of insulin (CMS/HCC) LIPID PANEL, STANDARD Routine 08/21/2023 9:26 AM EDT Type 2 diabetes mellitus with stage 3b chronic kidney disease, without long-term current use of insulin (CMS/HCC) PANORAMIC RADIOGRAPHIC IMAGE Routine 09/17/2022 10:00 AM EDT PERIODIC ORAL EVALUATION - ESTABLISHED PATIENT Routine 09/17/2022 10:00 AM EDT HEPATITIS C AB W/REFL TO HCV RNA, QN, PCR Routine 06/26/2022 10:58 AM EDT Type 2 diabetes mellitus with stage 3b chronic kidney disease, without long-term current use of insulin (CMS/HCC) from Last 3 Months or Most Recently Relevant to Health Maintenance Results * (ABNORMAL) POCT A1C (12/09/2023 3:45 PM EDT) Hemoglobin A1C 7.1(A) 4.0 - 6.0 % QC Media Lot # Comment:[id number] Lot# Expiration Date Comment:08/07/2025 Blood 12/09/2023 3:45 PM EDT Dieter Nicole MD POINT OF CARE TEST ENTER/EDIT ORDERABLES Final Result * (ABNORMAL) Lipid Panel, Standard (08/21/2023 9:26 AM EDT) Triglycerides 174(H) <150 mg/dL [facility] Comment:Desirable Triglyceri de: less than 150 mg/dLBorderline High Triglyceride 150-199 mg/dLHigh Triglyceride: 200-499 mg/dLVery High Triglyceride: greater than or equal to 5OO mg/dL Cholesterol 184 <200 mg/dL [facility] Comment:Desirable Cholestero l: less than 200 mg/dLBorderline High Cholesterol: 200-239 mg/dLHigh Cholesterol: greater than 239 mg/dL LDL Cholesterol Calculated 113(H) <100 mg/dL [facility] Comment:Desirable LDL: less than 100 mg/dLNear Optimal/Above Optimal LDL: 110- 129 mg/dLBorderline High LDL: 130-159 mg/dLHigh LDL: 160-189 mg/dLVery High LDL: greater than or equal to 190 mg/dL HDL Cholesterol 37(L) >40 mg/dL [facility] Comment:Desirable HDL: great er than 40 mg/dL Note: This HDL assay may give artificially low results in patients with liver disease. Blood Venous blood specimen / Unknown 08/21/2023 9:26 AM EDT 08/21/2023 2:07 PM EDT Dieter Nicole MD LAB BLOOD ORDERABL ES Final Result [facility] [address] [place] [address] [phone] * Hepatitis C Antibody with Reflex to HCV, RNA, Quantitative, Real-Time PCR (06/26/2022 10:58 AM EDT) Hepatitis C Antibody NON-REACT JILLIAN NON-REACT JILLIAN [facility] [place] [facility] Index 0.07 <1.00 [facility] [place] [facility] Comment: HCV antibody was non-reactive. There is no laboratory evidence of HCV infection. In most cases, no further action is required. However, if recent HCV exposure is suspected, a test for HCV RNA (test code 22561) is suggested. For additional information please refer to http://education.Fortscale/faq/NXA16a0 (This link is being provided for informational/ educational purposes only.) Blood Venous blood specimen / Unknown 06/26/2022 10:58 AM EDT 06/26/2022 10:59 AM EDT Narrative [facility] - 06/27/2022 7:24 AM EDT FASTING:NO FASTING: NO Dieter Nicole MD LAB BLOOD ORDERABL ES Final Result [facility] [address] [place] [address] [facility] [address] [place] [phone] from Last 3 Months or Most Recently Relevant to Health Maintenance Insurance [facility] STANDARD MEDICARE DENTAL-[facility] MEDICAID STAND [place] [phone] Care Teams Bereavement Program Coordinator Relationship Specialty Start Date End Date Dieter George MD [address] [place] [id number] PCP - General Internal Medicine 07/14/19
--- OUTSIDE RECORDS SUMMARY | 2024-05-01 08:55 | XMS_ITS | Encounter Summary ---
Author Organization [email or web address] Address [address] [place] [address] Care Team Providers Care Facility Engineer Name Role Phone Dieter George MD Primary Care Prov ider Reason for Visit * Reason Comments Med Refill Encounter Details Date Type Department Care Team ([facility] st Contact Info) Description 09/16/2023 Refill [facility] [address] [place], [place] [phone] Dieter George MD [address] [place] [address] Dryness of periwound skin Social History Tobacco Use Types Packs/Day Years [...] Info) Description 08/03/2024 11:15 AM EDT Telemedicine [facility] [address] [place] [address] Dieter George MD [address] [place] [address] documented as of this encounter Visit Diagnoses Diagnosis Dryness of periwound skin documented in this encounter Additional Health Concerns Assessment Noted Time PHQ-9 Depression Total Score: 1 02/20/19 23 10:21 AM EST documented as of this encounter Care Teams Facility Engineer Relationship Specialty Start Date End Date Dieter George MD [address] [place] [address] PCP - General Internal Medicine 07/14/19 documented as of this encounter
--- OUTSIDE RECORDS SUMMARY | 2024-05-01 08:55 | XMS_ITS | Encounter Summary ---
Author Organization [facility] Address [address] [address] Phone Care Team Providers Care Furniture Arranger Name Role Phone Dieter Suggs Primary Care Provider [phone] Encounter Details Date Type Department Care Team (Late st Contact Info) Description 12/03/2022 Office Communication [facility] [address] [address] Twin Byrnes MD [address] [address] Social History Tobacco Use Types Packs/Day Years Used Date Smoking Tobacco: Never Assessed Comments Unknown Sex and Gender Information Value Date Recorded Sex Assigned at Not on file Legal Sex Female 4:46 PM EST Gender Identity Not on file Sexual Orientation Not on file documented as of this encounter Miscellaneous Notes * Telephone Encounter - Twin Byrnes MD - 12/03/2022 10:17 AM EDT Needs f/u in 3-5 wks --very important--thx documented in this encounter Plan of Treatment Upcoming Encounters Date Type Department Care Team (Late st Contact Info) Description 07/01/2024 10:00 AM EDT Office Visit [facility] [address] [address] Twin Byrnes MD [address] [address] documented as of this encounter Visit Diagnoses Not on filedocumented in this encounter Care Teams Furniture Arranger Relationship Specialty Start Date End Date Dieter Suggs [address] [place] [id number] PCP - General Internal Medicine 07/27/21 documented as of this encounter
[2024-05-01 15:06] LABS: Estimated Average Glucose 143 mg/dL; Hemoglobin A1C 150.9413 umol/L; Hemoglobin A1c % 6.6 % (<6.0)
[2024-05-01 17:37] LABS: Alanine Aminotransferase 17 U/L (0-31); Alkaline Phosphatase 55 U/L (39-117); Aspartate Amino Transferase 32 U/L (5-31); Bilirubin Direct 0.2 mg/dL (0.0-0.5); Bilirubin Total 0.4 mg/dL (0.0-1.0); Cholesterol 168 mg/dL (<200); HDL Cholesterol 37 mg/dL (>40); LDL Cholesterol Calculated 95 mg/dL (<100); Total Protein 7.7 g/dL (6.5-8.0); Triglycerides 184 mg/dL (<150)
== END 2024-05-01 08:42 | disposition home or self-care (01) ==
LOC: HO.CHCLDS 08:41
PROVIDERS: Visit Provider Internal Medicine
DX: E11.22 Type 2 diabetes mellitus with diabetic chronic kidney disease (principal); N18.32 Chronic kidney disease, stage 3b
CPT/HCPCS: 36415; 80061; 80076; 83036